=== PATIENT | female | born 1955 | race Caucasian/White ===

== ENCOUNTER → 2016-05-04 | Outpatient (CLI) | payer OTHER ==
--- NOTE | 2016-05-07 09:37 | MM ---
Reason for exam: screening (asymptomatic). Last mammogram was performed 1 year and 2 months ago. History: Patient is postmenopausal. Family history of breast cancer in 2 maternal aunts. Excisional biopsy of the left breast. Physical Findings: A clinical breast exam by your physician is recommended on an annual basis and results should be correlated with mammographic findings. MG 3D Screening Mammo W/Cad Bilateral CC and MLO view(s) were taken. Prior study comparison: March 04, 2015, bilateral MG 3d screening mammo w/cad. January 15, 2013, bilateral digital screening mammo w/CAD. There are scattered fibroglandular densities. No significant changes when compared with prior studies. ASSESSMENT: Negative, BI-RAD 1 RECOMMENDATION: Routine screening mammogram of both breasts in 1 year.
== END | disposition home or self-care (01) ==
LOC: RADMAMWWP 16:24
PROVIDERS: ATTEND Family Medicine
DX: Z12.31 Encounter for screening mammogram for malignant neoplasm of breast (principal)
CPT/HCPCS: 77063; G0202

== ENCOUNTER → 2017-07-05 | Outpatient (CLI) | payer OTHER ==
--- NOTE | 2017-07-09 09:15 | MM ---
Reason for exam: screening (asymptomatic). Last mammogram was performed 1 year and 2 months ago. History: Patient is postmenopausal. Family history of breast cancer in 2 maternal aunts. Excisional biopsy of the left breast. Physical Findings: A clinical breast exam by your physician is recommended on an annual basis and results should be correlated with mammographic findings. MG 3D Screening Mammo W/Cad Bilateral CC and MLO view(s) were taken. Prior study comparison: May 04, 2016, bilateral MG 3d screening mammo w/cad. March 04, 2015, bilateral MG 3d screening mammo w/cad. The breast tissue is heterogeneously dense. This may lower the sensitivity of mammography. No significant changes when compared with prior studies. ASSESSMENT: Negative, BI-RAD 1 RECOMMENDATION: Routine screening mammogram of both breasts in 1 year.
== END | disposition home or self-care (01) ==
LOC: RADMAMWWP 14:56
PROVIDERS: ATTEND Family Medicine
DX: Z12.31 Encounter for screening mammogram for malignant neoplasm of breast (principal)
CPT/HCPCS: 77063; 77067

== ENCOUNTER → 2018-04-24 | Outpatient (CLI) | payer OTHER ==
--- NOTE | 2018-04-24 19:44 | CONS ---
CONSULTATION DATE OF SERVICE: 04/24/2018 63-year-old lady has been evaluated in the sleep center for possible obstructive sleep apnea-hypopnea syndrome. HISTORY OF PRESENT ILLNESS/ SLEEP WAKE EVALUATION: Patient usual sleep schedule on weekdays from midnight until 10 a.m. 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 No problem with falling asleep. No TV in bedroom. She usually sleeps on the side position with snoring and awakenings from sleep up to 4 times. The patient also grinding her teeth. In the morning, she wakes up tired, falling asleep during the day. Has episodes of depression. [place] Sleepiness Scale is 8. PAST MEDICAL HISTORY: Positive for depression, hyperlipidemia. Acid reflux. PAST SURGICAL HISTORY: Breast biopsy negative. MEDICATIONS: Effexor, Prevacid, Zocor, vitamin D supplements. SOCIAL HISTORY: Positive for smoking in the past, quit 35 years ago. Alcohol consumption none. FAMILY HISTORY: Hypertension, hyperlipidemia, stroke, arthritis, asthma, dementia, lung problems, cancer, mental illness, ulcers, acid reflux. REVIEW OF SYSTEMS: Awakenings from sleep, sometimes tiredness during the day. Patient takes nap when she has time to do so. PHYSICAL EXAM: Patient in no distress. BP 137/92, HR 86, RR 16, height 5 feet 5 inches, weight 209 pounds. Body mass index 34.9, temperature 98.3, oxygen saturation at room air 98%. Oropharynx extremely low position of soft palate. Retrognathia 4-5 mm. Abdomen slightly obese. Neck Supple, no JVD. Thyroid is not palpable. LUNGS Clear to percussion and to auscultation. Good air exchange. No wheezing or rhonchi. HEART S1, S2 regular. No murmurs, gallops, or rubs. ABDOMEN: Obese. Soft and nontender. Bowel sounds are present. No organomegaly appreciated. EXTREMITIES No clubbing or cyanosis. RADIOLOGIC TECH Awake, alert, and oriented X3. Cranial nerves 2 to 7 intact. There is no fasciculation or atrophy. noted. No focal deficits observed. IMPRESSION: 1. Snoring, multiple awakenings from sleep, extremely low position of soft palate, obstructive sleep apnea-hypopnea syndrome. 2. Obesity, BMI 34.9. 3. History of depression. 4. Hyperlipidemia. 5. Acid reflux. PLAN: 1. Polysomnography for evaluation of patient's breathing during sleep. 2. CPAP/BiPAP titration if sleep study confirms obstructive sleep apnea-hypopnea syndrome. 3. Preferable position during sleep on the side. 4. No driving if patient feels any sleepiness. 5. I will see patient for follow up visit to explain results of testing and following plan. Thank you very much for referring this patient for consultation. Sincerely, Emmanuel Dinero MD, PhD, FAASM Diplomat of [place] [employer] Specialties [employer] Board of [employer] Medicine Streetsweeper Operator of [facility] [place] MMODL / IJN: [id number] /
== END ==
LOC: SLEEP 14:32
PROVIDERS: ATTEND Internal Medicine
DX: G47.33 Obstructive sleep apnea (adult) (pediatric) (principal); E66.9 Obesity, unspecified; F32.9 Major depressive disorder, single episode, unspecified; E78.5 Hyperlipidemia, unspecified; K21.9 Gastro-esophageal reflux disease without esophagitis; Z99.89 Dependence on other enabling machines and devices; Z87.891 Personal history of nicotine dependence; Z68.34 Body mass index [BMI] 34.0-34.9, adult
CPT/HCPCS: 99211

== ENCOUNTER → 2018-08-13 | Outpatient (CLI) | payer OTHER ==
--- NOTE | 2018-08-13 17:25 | PN ---
PROGRESS NOTE DATE OF SERVICE: 08/13/2018 This patient is a 63-year-old lady who has been followed in Sleep Center for treatment for treatment of obstructive sleep apnea-hypopnea syndrome. Recently the patient had a home sleep apnea test which showed severe sleep apnea. Subsequently patient was started on treatment with Auto PAP. Today is her first visit after she was treated. The patient sleeps better with the CPAP equipment, feels better during the day. [place] Sleepiness Scale today is 3, but she still has some problem with her mask; sometimes she feels there is a leak from the mask and she feels some related to the mask. I checked her CPAP unit. Range of the pressure is from 5 to 15. Average pressure is 12.9. Usage is every night for 28/30 nights for more than 4 hours. Average usage is 8.5 hours. Leak is 19 L/minute, which is borderline for the full-face mask. Apnea- hypopnea index for the last night was only 1.5, but average for the last month is 8.6. MEDICATIONS: 1. Effexor. 2. Prevacid. 3. Zocor. 4. Vitamin D. PHYSICAL EXAMINATION: GENERAL: A pleasant patient in no distress. VITAL SIGNS: BP 147/80, HR 94, RR 16, weight 212 pounds. Temperature 99.1. Oxygen saturation at room air 98%. HEENT: PERRLA, EOMI. Evaluation of oropharynx showed tongue protrudes midline. Extremely low position of soft palate. Retrognathia of 4 mm. NECK: Supple. No JVD. Thyroid is not palpable. LUNGS: Clear to percussion and to auscultation. Good air exchange. No wheezing or rhonchi. HEART: S1, S2 regular. No murmurs, gallops or rubs. ABDOMEN: Slightly obese. EXTREMITIES: No clubbing or cyanosis. TRIMMING CASER: Awake, alert, and oriented X3. Cranial nerves 2 to 7 intact. There is no fasciculation or atrophy. noted. No focal deficits observed. IMPRESSION: 1. Severe obstructive sleep apnea-hypopnea syndrome. Apnea-hypopnea index 31.8 with oxygen saturation to 85%, practically under control with Auto PAP. Patient demonstrated great compliance with treatment, benefitting from treatment. 2. Obesity. 3. History of depression. 4. Hyperlipidemia. 5. Acid reflux. PLAN: 1. Patient will continue to use CPAP equipment every night for the whole night. 2. We will try to fit the patient with a different style of CPAP mask. 3. Losing weight. 4. Sleep hygiene with regular time in bed for at least 8 hours. 5. No driving if feeling any sleepiness. Thank you very much for allowing me to participate in the management of your patient. Sincerely, Emmanuel Dinero MD, PhD, FAASM Diplomat of [place] Of [place] Board of Medical Specialties Citizen Of [place] Board of Internal Medicine Free Lance Model of [facility] [place] MMODL / IJN: [id number] /
== END ==
LOC: SLEEP 15:49
PROVIDERS: ATTEND Internal Medicine
DX: G47.33 Obstructive sleep apnea (adult) (pediatric) (principal); E66.9 Obesity, unspecified; E78.5 Hyperlipidemia, unspecified; K21.9 Gastro-esophageal reflux disease without esophagitis; F32.9 Major depressive disorder, single episode, unspecified; Z99.89 Dependence on other enabling machines and devices; Z79.899 Other long term (current) drug therapy

== ENCOUNTER → 2018-12-30 | Outpatient (CLI) | payer OTHER ==
--- NOTE | 2019-01-01 15:03 | MM ---
Reason for exam: screening (asymptomatic). Last mammogram was performed 1 year and 6 months ago. History: Patient is postmenopausal. Family history of breast cancer in 2 maternal aunts. Excisional biopsy of the left breast. Physical Findings: A clinical breast exam by your physician is recommended on an annual basis and results should be correlated with mammographic findings. MG 3D Screening Mammo W/Cad Bilateral CC and MLO view(s) were taken. Prior study comparison: July 05, 2017, bilateral MG 3d screening mammo w/cad. May 04, 2016, bilateral MG 3d screening mammo w/cad. There are scattered fibroglandular densities. No significant changes when compared with prior studies. ASSESSMENT: Negative, BI-RAD 1 RECOMMENDATION: Routine screening mammogram of both breasts in 1 year.
== END ==
LOC: RADMAMWWP 13:45
PROVIDERS: ATTEND Family Medicine
DX: Z12.31 Encounter for screening mammogram for malignant neoplasm of breast (principal)
CPT/HCPCS: 77063; 77067

== ENCOUNTER → 2019-04-30 | Outpatient (CLI) | payer OTHER ==
--- NOTE | 2019-04-30 18:05 | PN ---
PROGRESS NOTE DATE OF SERVICE: 04/30/2019 This patient is a 64-year-old lady who has been followed in Sleep Center for treatment of obstructive sleep apnea-hypopnea syndrome. Patient continues to use her CPAP equipment every night for the whole night with the full-face AirTouch F20 medium-sized mask, and she likes this mask. [place] Sleepiness Scale today is 1. I checked the patient's CPAP unit. Range of the pressure is 5 to 15. Average pressure is 13.7 cm of water. Leak is 14 L/minute, which is acceptable for a full-face mask. Usage is 30/30 nights for more than 4 hours with average usage 10.5 hours per night. Apnea-hypopnea index is 5.9, which is better than 6 months ago, and for the last night apnea-hypopnea index was only 2.5, which is perfect. MEDICATIONS: Medrol Dosepak, Effexor, Prevacid, Zocor, vitamin D. PHYSICAL EXAMINATION: GENERAL: A pleasant patient in no distress. VITAL SIGNS: BP 168/99, HR 86, RR 15, height 5 feet 5 inches, weight 214.2 pounds, body mass index 35.6, temperature 98.2, oxygen saturation at room air 97%. HEENT: PERRLA, EOMI. Evaluation of oropharynx showed tongue protrudes midline. Extremely low position of soft palate. Mallampati IV. NECK: Supple. No JVD. Thyroid is not palpable. LUNGS: Clear to percussion and to auscultation. Good air exchange. No wheezing or rhonchi. HEART: S1, S2 regular. No murmurs, gallops or rubs. ABDOMEN: Slightly obese. EXTREMITIES: No clubbing or cyanosis. FAST FOOD SALES ASSISTANT: Awake, alert, and oriented X3. Cranial nerves 2 to 7 intact. There is no fasciculation or atrophy. noted. No focal deficits observed. IMPRESSION: 1. Severe obstructive sleep apnea-hypopnea syndrome; AHI 31.8 with oxygen desaturation to 85%, under good control with CPAP. Patient demonstrated great compliance with treatment, benefitting from treatment. 2. Obesity. 3. Hyperlipidemia. 4. History of depression. 5. Acid reflux. 6. Increasing blood pressure in the office today. PLAN: 1. Patient will continue to use CPAP equipment every night for the whole night. 2. Watching weight. 3. Monitoring blood pressure. 4. Low-sodium diet. 5. No driving if feeling any sleepiness. 6. I will maintain all necessary CPAP prescriptions, including mask, tube, filters. Thank you very much for allowing me to participate in the management of your patient. Sincerely, Emmanuel Dinero MD, PhD, FAASM Diplomat of [place] Board of Medical Specialties [place]ian Board of Internal Medicine Quality Control Microbiology Supervisor of [facility] [place] MMODL / CARTERN: [id number] /
== END | disposition home or self-care (01) ==
LOC: SLEEP 15:15
PROVIDERS: ATTEND Internal Medicine
DX: G47.33 Obstructive sleep apnea (adult) (pediatric) (principal); E66.9 Obesity, unspecified; E78.5 Hyperlipidemia, unspecified; K21.9 Gastro-esophageal reflux disease without esophagitis; I10 Essential (primary) hypertension; Z68.35 Body mass index [BMI] 35.0-35.9, adult; Z86.59 Personal history of other mental and behavioral disorders; Z99.89 Dependence on other enabling machines and devices; Z79.52 Long term (current) use of systemic steroids; Z79.899 Other long term (current) drug therapy

== ENCOUNTER → 2019-11-12 | Outpatient (CLI) | payer OTHER ==
--- NOTE | 2019-11-13 06:18 | SFUN ---
SLEEP CENTER FOLLOW UP NOTE DATE OF SERVICE: 11/12/2019 This 64-year-old lady has been followed in Sleep Center for treatment of obstructive sleep apnea-hypopnea syndrome. Patient continued to use her CPAP equipment every night. She sleeps well with equipment. No problems. [place] Sleepiness Scale today is zero. I checked her CPAP unit. Range of the pressure is 5 to 15. Average pressure 13.4 cm of water usage. Usage 30 out of 30 nights for more than 4 hours. Average usage 10.3 hours per night. Leak is 14 L/minute which is borderline. Apnea-hypopnea index 6.6, and amount of central apneas 4.9. MEDICATIONS: Carvedilol, Effexor, Zyrtec. Medication for cholesterol, patient does not remember the name. PHYSICAL EXAMINATION: GENERAL: Patient in no distress. VITAL SIGNS: BP 158/77, HR 77, RR 15, height 5 feet 5-1/2 inches, weight 219.8, which is 5-1/2 pounds more than during the previous visit, temperature 98.2, oxygen saturation at room air 100%. HEENT: PERRLA, EOMI. Oropharynx low position of soft palate. Mallampati 4. NECK: Supple, no JVD. Thyroid is not palpable. LUNGS: Clear to percussion and to auscultation. Good air exchange. No wheezing or rhonchi. HEART: S1, S2 regular. No murmurs, gallops, or rubs. ABDOMEN: Slightly obese. EXTREMITIES: No clubbing or cyanosis. CHRISTIAN SCIENCE HEALER: Awake, alert, and oriented X3. Cranial nerves 2 to 7 intact. There is no fasciculation or atrophy. noted. No focal deficits observed. IMPRESSION: 1. Severe obstructive sleep apnea-hypopnea syndrome. Patient demonstrated 100% compliance with treatment, benefitting from treatment. 2. Obesity. Patient increased weight of 5 pounds comparing with the previous visit. 3. History of depression. 4. Hyperlipidemia. 5. Acid reflux. 6. Hypertension. PLAN: 1. Patient will continue to use PAP equipment every night for the whole night. 2. Sleep hygiene with regular time in bed for at least 7-1/2 to 8 hours. 3. Precautions related to driving. No driving if feeling sleepiness. 4. I will maintain all necessary prescription for PAP supplies including mask, tube, filters. 5. Watching weight. 6. No driving if feeling sleepiness. 7. Follow-up visit in 6 months or earlier if patient has any problems. Thank you very much for allowing me to participate in management of your patient. Sincerely, Emmanuel Dinero MD, PhD, FAASM Diplomat of [place] Board of Medical Specialties Nep[place]e Board of Internal Medicine Supervisor Coil Winding of [facility] [place] MMNICK / BRIDGET: [id number] /
== END | disposition home or self-care (01) ==
LOC: SLEEP 15:33
PROVIDERS: ATTEND Internal Medicine
DX: G47.33 Obstructive sleep apnea (adult) (pediatric) (principal); E66.9 Obesity, unspecified; E78.5 Hyperlipidemia, unspecified; Z68.41 Body mass index [BMI] 40.0-44.9, adult; K21.9 Gastro-esophageal reflux disease without esophagitis; I10 Essential (primary) hypertension; Z86.59 Personal history of other mental and behavioral disorders; Z99.89 Dependence on other enabling machines and devices; Z79.899 Other long term (current) drug therapy

== ENCOUNTER → 2020-05-12 | Outpatient (CLI) | payer OTHER ==
--- NOTE | 2020-05-12 18:03 | SFUN ---
SLEEP CENTER FOLLOW UP NOTE DATE OF SERVICE: 05/12/2020 This is a 65-year-old lady who has been followed in Sleep Center for treatment of obstructive sleep apnea-hypopnea syndrome. The patient is continuing to use her CPAP equipment every night for the whole night, but trying to sleep on the side position on the back position she is developing some breathing problems, and numbers on her machine, according to the patient, go up. I checked the patient's CPAP unit. Range of the pressure is 5 to15, average pressure 12.5. Usage is 30/30 nights for more than 4 hours. Average use is 9.9 hours per night. Leak is 26 L/minute, which is slightly high. Apnea-hypopnea index is 4.7, which is normal. MEDICATIONS: Coreg twice a day, Effexor once a day, simvastatin once a day, Claritin, aspirin. PHYSICAL EXAMINATION: GENERAL: A pleasant patient in no distress. VITAL SIGNS: BP 144/90, HR 79, RR 12, height 5 feet 1 inch, weight 226.0, temperature 97.6, oxygen saturation at room air 97%. HEENT: PERRLA, EOMI. Evaluation of oropharynx showed tongue protrudes midline. Extremely low position of soft palate. Mallampati IV. NECK: Supple. No JVD. Thyroid is not palpable. LUNGS: Clear to percussion and to auscultation. Good air exchange. No wheezing or rhonchi. HEART: S1, S2 regular. No murmurs, gallops or rubs. ABDOMEN: Obese. EXTREMITIES: No clubbing or cyanosis. SALVAGE LABORER: Awake, alert, and oriented X3. Cranial nerves 2 to 7 intact. There is no fasciculation or atrophy. noted. No focal deficits observed. IMPRESSION: 1. Obstructive sleep apnea-hypopnea syndrome. Patient demonstrated 100% compliance with treatment, benefitting from treatment. The patient has some difficulties sleeping on the back position related her breathing. 2. Obesity. Patient's weight increased by about 6 or 7 pounds since previous visit. 3. History of depression. 4. Hyperlipidemia. 5. Acid reflux. 6. Hypertension. PLAN: 1. I adjusted the pressure in her machine to the maximum level of 18; possibly it is not enough pressure for correction of respiratory abnormalities when the patient is on her back. She is trying to avoid sleeping on her back now. 2. Patient will continue to use PAP equipment every night for the whole night. 3. Sleep hygiene with regular time in bed for at least 7-1/2 to 8 hours. 4. Precautions related to driving. No driving if feeling sleepiness. 5. I will maintain all necessary prescription for PAP supplies including mask, tube, filters. 6. Watching weight. 7. No driving if feeling sleepiness. 8. Follow-up visit in 6 months or earlier if patient has any problems. Thank you very much for allowing me to participate in the management of your patient. Sincerely, Emmanuel Dinero MD, PhD, FAASM Diplomat of [place] Board of Medical Specialties Ghanaian Board of Internal Medicine Band Ripsaw Operator of [facility] [place] MMODL / IJN: [id number] /
== END | disposition home or self-care (01) ==
LOC: SLEEP 13:46
PROVIDERS: ATTEND Internal Medicine
DX: G47.33 Obstructive sleep apnea (adult) (pediatric) (principal); E78.5 Hyperlipidemia, unspecified; K21.9 Gastro-esophageal reflux disease without esophagitis; I10 Essential (primary) hypertension; E66.9 Obesity, unspecified; Z86.59 Personal history of other mental and behavioral disorders; Z79.82 Long term (current) use of aspirin; Z79.899 Other long term (current) drug therapy; Z99.89 Dependence on other enabling machines and devices

== ENCOUNTER → 2020-06-02 | Outpatient (CLI) | payer OTHER ==
--- NOTE | 2020-06-03 14:18 | MM ---
Reason for exam: screening (asymptomatic). Last mammogram was performed 1 year and 5 months ago. History: Patient is postmenopausal. Family history of breast cancer in 2 maternal aunts. Excisional biopsy of the left breast. Physical Findings: A clinical breast exam by your physician is recommended on an annual basis and results should be correlated with mammographic findings. MG 3D Screening Mammo W/Cad Bilateral CC, MLO, and XCCL view(s) were taken. Prior study comparison: December 30, 2018, bilateral MG 3d screening mammo w/cad. July 05, 2017, bilateral MG 3d screening mammo w/cad. The breast tissue is heterogeneously dense. This may lower the sensitivity of mammography. There is no discrete abnormality. ASSESSMENT: Negative, BI-RAD 1 RECOMMENDATION: Routine screening mammogram of both breasts in 1 year.
== END ==
LOC: RADMAMWWP 14:35
PROVIDERS: ATTEND Family Medicine
DX: Z12.31 Encounter for screening mammogram for malignant neoplasm of breast (principal); Z80.3 Family history of malignant neoplasm of breast; Z78.0 Asymptomatic menopausal state
CPT/HCPCS: 77063; 77067

== ENCOUNTER → 2020-12-01 | Outpatient (CLI) | payer OTHER ==
--- NOTE | 2020-12-01 20:37 | SFUN ---
SLEEP CENTER FOLLOW UP NOTE DATE OF SERVICE: 12/01/2020 This 65-year-old lady has been followed in Sleep Center for treatment of obstructive sleep apnea-hypopnea syndrome. The patient continues to use her CPAP equipment every night, but sometimes she has episodes of awakenings with gasping for air while using her machine. [place] Sleepiness Scale today is only 1, which is perfect. I checked her CPAP unit. It is in automatic regimen with range of the pressure 5-18 and average pressure 13.5. Usage is 30/30 nights, and 28/30 nights for more than 4 hours, with average usage 8.5 hours per night, which is great compliance. Leak is borderline at 20 L/minute. At the same time, apnea-hypopnea index increased to 8.4. MEDICATIONS: 1. Wellbutrin once a day. 2. Effexor has stopped. 3. Coreg. 4. Glipizide. 5. Prevacid. 6. Simvastatin. PHYSICAL EXAMINATION: GENERAL: A pleasant patient without any distress. VITAL SIGNS: BP 137/82, HR 69, RR 12, height 5 feet 6 inches, weight 222.2, BMI 35.8, temperature 97.2, oxygen saturation at room air 98%. HEENT: PERRLA, EOMI, evaluation of oropharynx showed tongue protrudes midline. Extremely low position of soft palate; Mallampati IV. NECK: Supple, no JVD. Thyroid is not palpable. LUNGS: Clear to percussion and to auscultation. Good air exchange. No wheezing or rhonchi. HEART: S1, S2 regular. No murmurs, gallops, or rubs. ABDOMEN: Obese. EXTREMITIES: No clubbing or cyanosis. BUTTON PUNCHER: Awake, alert, and oriented X3. Cranial nerves 2 to 7 intact. There is no fasciculation or atrophy. noted. No focal deficits observed. IMPRESSION: 1. Obstructive sleep apnea-hypopnea syndrome. Patient demonstrated great compliance with treatment, but her apnea-hypopnea index slightly increased to 8.4. 2. Obesity. 3. History of depression. 4. Hyperlipidemia. 5. Acid reflux. 6. Hypertension. PLAN: 1. I changed the regimen of automatic PAP pressure from 5 to maximum of 20. 2. Patient will continue to use PAP equipment every night for the whole night. 3. Sleep hygiene with regular time in bed for at least 7-1/2 to 8 hours. 4. Precautions related to driving. No driving if feeling sleepiness. 5. I will maintain all necessary prescription for PAP supplies including mask, tube, filters. 6. Watching weight. 7. Follow-up visit in 3 months or earlier if patient has any problems. Thank you very much for allowing me to participate in the management of your patient. Sincerely, Emmanuel Dinero MD, PhD, FAASM Diplomat of [place] Board of Medical Specialties Sleep Medicine Board of [place] Board of Internal Medicine Project Associate of [facility] [place] MMODL / CARTERN: [id number] /
== END ==
LOC: SLEEP 13:47
PROVIDERS: ATTEND Internal Medicine
DX: G47.33 Obstructive sleep apnea (adult) (pediatric) (principal); E66.9 Obesity, unspecified; F32.9 Major depressive disorder, single episode, unspecified; E78.5 Hyperlipidemia, unspecified; K21.9 Gastro-esophageal reflux disease without esophagitis; I10 Essential (primary) hypertension; Z79.899 Other long term (current) drug therapy; Z68.35 Body mass index [BMI] 35.0-35.9, adult; Z88.0 Allergy status to penicillin; Z88.2 Allergy status to sulfonamides; Z87.891 Personal history of nicotine dependence

== ENCOUNTER → 2021-05-25 | Outpatient (CLI) | payer OTHER ==
--- NOTE | 2021-05-25 14:47 | SFUN ---
SLEEP CENTER FOLLOW UP NOTE DATE OF SERVICE: 05/25/2021 This 66-year-old lady has been followed in Sleep Center for treatment of obstructive sleep apnea-hypopnea syndrome. The patient lost 30 pounds of her weight, and she thinks that possibly she does not need the machine anymore. She is not to using CPAP equipment every night. [place] Sleepiness Scale today is 1, which is normal. I checked her CPAP unit. For the last month, the patient used it only one night, and for that night leak was 8 L/minute and apnea-hypopnea index was 3.0, which is in normal range. For the last 3 months, the patient used it 33 nights and leak was high at L/minute, and apnea-hypopnea index was increased to 5.5. Range of the pressure in the machine is 5 to 20, average pressure 14.8 cm of water, which is in a high range. MEDICATIONS: 1. Wellbutrin 150 mg once a day. 2. Zoloft twice a day. 3. Prevacid. 4. Coreg. 5. Glipizide. 6. Simvastatin. PHYSICAL EXAMINATION: GENERAL: Pleasant patient in no distress. VITAL SIGNS: BP 153/89, HR 64, RR 18, weight 198 pounds, height 5 feet 6 inches, temperature 97.6, oxygen saturation at room air 97%. HEENT: PERRLA, EOMI, evaluation of oropharynx showed tongue protrudes midline. Extremely low position of soft palate; Mallampati IV. NECK: Supple, no JVD. Thyroid is not palpable. LUNGS: Clear to percussion and to auscultation. Good air exchange. No wheezing or rhonchi. HEART: S1, S2 regular. No murmurs, gallops, or rubs. ABDOMEN: Soft and nontender. Bowel sounds are present. No organomegaly appreciated. EXTREMITIES: No clubbing or cyanosis. INFANT ROOM TEACHER: Awake, alert, and oriented X3. Cranial nerves 2 to 7 intact. There is no fasciculation or atrophy. noted. No focal deficits observed. IMPRESSION: 1. Obstructive sleep apnea-hypopnea syndrome. The patient practically stopped using her CPAP equipment after losing weight and believes that her respiration is possibly normal after losing weight. 2. Obesity. Patient lost about 30 pounds in total. 3. History of depression. 4. Hyperlipidemia. 5. Acid reflux. 6. Hypertension. PLAN: 1. Home sleep apnea test to check patient's breathing during sleep after she lost weight. 2. I tried to convince the patient that she needs to continue to use her CPAP equipment every night for the whole night. I believe that she still has abnormalities of respiration, especially because apnea-hypopnea index reading from the machine while she was using machine was 5.5, which is above normal range. 3. Continue losing weight. 4. Sleep hygiene with regular time in bed for at least 7-1/2 to 8 hours. 5. No driving if feeling any sleepiness. 6. Follow-up visit after home sleep apnea test to discuss results of the sleep study and following plan. Thank you very much for allowing me to participate in the management of your patient. Sincerely, Emmanuel Dinero MD, PhD, FAASM Diplomat of [place] Board of Medical Specialties Sleep Medicine Board of [place] Board of Internal Medicine Wall Taper of [facility] [place] MMODL / IJN: [id number] /
== END ==
LOC: SLEEP 11:11
PROVIDERS: ATTEND Internal Medicine
DX: G47.33 Obstructive sleep apnea (adult) (pediatric) (principal); E66.9 Obesity, unspecified; F32.A Depression, unspecified; E78.5 Hyperlipidemia, unspecified; K21.9 Gastro-esophageal reflux disease without esophagitis; I10 Essential (primary) hypertension; Z79.899 Other long term (current) drug therapy; Z88.0 Allergy status to penicillin; Z88.2 Allergy status to sulfonamides; Z87.891 Personal history of nicotine dependence

== ENCOUNTER → 2021-06-15 | Outpatient (CLI) | payer OTHER ==
--- NOTE | 2021-06-15 14:10 | CT ---
EXAMINATION TYPE: CT sinus wo con DATE OF EXAM: 06/15/2021 COMPARISON: None available HISTORY: Chronic sinusitis. CT DLP: 589 mGycm. Automated Exposure Control for Dose Reduction was Utilized. TECHNIQUE: CT scan of the sinuses is performed without contrast, axial images are obtained, coronal r eformatted images are also reviewed. FINDINGS: Slightly deviated bony nasal septum convex to the left side. Slightly paradoxical middle turbinates. Grossly unremarkable inferior turbinates. No significant mucosal thickening of the nasal fossa bilate rally. Patent infundibulum and ostiomeatal complex bilaterally. Minimal mucosal thickening of the alveolar r ecess of the right maxillary sinus, otherwise clear maxillary sinuses with intact bony boundary. Unremarkable sphenoid sinus, ethmoid air cells and frontal sinus. Patent sphenoethmoidal recesses. Cl ear mastoid air cells. Unremarkable orbits. The visualized portion of the brain demonstrates mild brain volume loss changes, likely age-related, and suspected mild chronic microvascular ischemic changes. IMPRESSION: Minimal mucosal thickening of the right maxillary sinus, otherwise unremarkable paranasal sinuses. Ot her findings as described above.
== END | disposition home or self-care (01) ==
LOC: RADCTMAIN 13:41
PROVIDERS: ATTEND Otolaryngology
DX: J34.89 Other specified disorders of nose and nasal sinuses (principal)
CPT/HCPCS: 70486

== ENCOUNTER → 2021-09-01 | Outpatient (CLI) | payer OTHER ==
--- NOTE | 2021-09-04 09:08 | MM ---
Reason for Exam: Screening (asymptomatic). Last mammogram was performed 1 year(s) and 3 month(s) ago. Patient History: Menarche at age 15. First Full-Term at age 18. Postmenopausal. Excisional Biopsy on the Left side. Maternal aunt had breast cancer. Maternal aunt had breast cancer. Risk Values: Estee 5 year model risk: 1.3%. NCI Lifetime model risk: 4.9%. Prior Study Comparison: 07/05/2017 Bilateral Screening Mammogram, [facility]. 12/30/2018 Bilateral Screening Mammogram, [facility]. 06/02/2020 Bilateral Screening Mammogram, [facility]. Tissue Density: The breast tissue is heterogeneously dense. This may lower the sensitivity of mammography. Findings: Analyzed By CAD. There is no suspicious group of microcalcifications or new suspicious mass in either breast. Overall Assessment: Negative, BI-RAD 1 Management: Screening Mammogram of both breasts in 1 year. A clinical breast exam by your physician is recommended on an annual basis and results should be correlated with mammographic findings. Electronically signed and approved by: Eddy Mcmahon M.D. Radiologis
== END | disposition home or self-care (01) ==
LOC: RADMAMWWP 14:55
PROVIDERS: ATTEND Family Medicine
DX: Z12.31 Encounter for screening mammogram for malignant neoplasm of breast (principal); Z78.0 Asymptomatic menopausal state; Z80.3 Family history of malignant neoplasm of breast
CPT/HCPCS: 77063; 77067

== ENCOUNTER 2022-02-08 16:28 | Observation (INO) | payer MEDICARE, OTHER ==
--- NOTE | 2022-02-08 18:58 | ED ---
Lower Extremity Injury HPI - General Chief Complaint: Extremity Injury, Lower Stated Complaint: Fall, L. Leg Injury Time Seen by Provider: 02/08/22 18:47 Source: patient, family Mode of arrival: wheelchair - History of Present Illness Initial Comments: Patient is a 67-year-old female presenting with chief complaint of left knee pain. Patient states that she had some swelling along the bottom of her shoe, this caused her to fall and slip in her kitchen. She denies any head injury, no blood thinners. No loss of consciousness. Patient is complaining of pain with weightbearing and ambulation. Patient states that rest the pain is very minimal. She has full range of motion and full sensation. No weakness, numbness, tingling. No bruising or discoloration. - Related Data Home Medications Medication Instructions Recorded Confirmed Albuterol Inhaler [Ventolin Hfa 2 puff INHALATION RT-Q6H PRN 07/09/14 02/08/22 Inhaler] Ergocalciferol [Vitamin D2 50,000 unit PO WE 07/09/14 02/08/22 (DRISDOL)] Sertraline HCl [Zoloft] 50 mg PO DAILY 07/09/14 02/08/22 Simvastatin (Unknown Dose) 1 tab PO DAILY 07/09/14 02/08/22 Clindamycin Topical Soln 1 applic TOPICAL DAILY PRN 02/08/22 02/08/22 [Cleocin-T Topical Soln] Clobetasol Propionate [Temovate 1 applic TOPICAL BID 02/08/22 02/08/22 0.05% Oint] Fluconazole 200 mg PO Q72H PRN 02/08/22 02/08/22 Lansoprazole 15 mg PO HS 02/08/22 02/08/22 Levocetirizine Dihydrochloride 5 mg PO DAILY 02/08/22 02/08/22 Minocycline HCl [Minocin] 100 mg PO BID 02/08/22 02/08/22 Mometasone Furoate [Asmanex 220 1 puff INHALATION RT-BID 02/08/22 02/08/22 MCG] Mupirocin 2% Oint [Bactroban 2% 1 applic TOPICAL BID 02/08/22 02/08/22 Oint] Super Snooze Herbal Supplement 1 dose PO HS PRN 02/08/22 02/08/22 Triamcinolone 0.1% Cream [Kenalog 1 applicatio TOPICAL BID 02/08/22 02/08/22 0.1% Cream] Allergies Allergy/AdvReac Type Severity Reaction Status Date / Time Penicillins Allergy Unknown Verified 02/08/22 22:33 Childhood Sulfa (Sulfonamide Allergy Rash/Hives Verified 02/08/22 22:33 Antibiotics) Review of Systems ROS Statement: Those systems with pertinent positive or pertinent negative responses have been documented in the HPI. ROS Other: All systems not noted in ROS Statement are negative. Past Medical History Past Medical History: Asthma, GERD/Reflux, Hyperlipidemia, Hypertension Additional Past Medical History / Comment(s): ABDOMINAL PAIN History of Any Multi-Drug Resistant Organisms: MRSA Date of last positivie culture/infection: 2012 MDRO Source:: FACE Additional Past Surgical History / Comment(s): EGD, COLONOSCOPY, BREAST BX BENIGN Past Anesthesia/Blood Transfusion Reactions: No Reported Reaction Past Psychological History: Anxiety, Depression Smoking Status: Never smoker Past Alcohol Use History: None Reported Past Drug Use History: None Reported General Exam General appearance: alert, in no apparent distress Head exam: Present: atraumatic, normocephalic, normal inspection Eye exam: Present: normal appearance Neck exam: Present: normal inspection Extremities exam: Present: normal inspection, full ROM, normal capillary refill. Absent: tenderness, calf tenderness Neurological exam: Present: alert, oriented X3, CN II-XII intact Psychiatric exam: Present: normal affect, normal mood Skin exam: Present: warm, dry, intact, normal color. Absent: rash Course Vital Signs 02/08/22 18:40 Temperature 97.7 F Pulse Rate 83 Respiratory 18 Rate Blood Pressure 149/91 O2 Sat by Pulse 99 Oximetry Medical Decision Making - Medical Decision Making Patient is a 67-year-old female presenting with chief complaint of left knee pain. Patient slipped and fell in her kitchen today. No head injury, loss of consciousness or blood thinners. Patient is complaining with pain with weightbearing. X-ray shows acute slightly displaced comminuted intra-articular fracture through the lateral tibial plateau extending into the proximal metaphysis there is associative are 2 patellar joint effusion or hemarthrosis. I discussed these findings with orthopedic human resources receptionist Dr. Jones, she advised ordering CT. I informed her of the results of the CT, she states that the patient may be discharged home nonweightbearing and follow-up in the office or be admitted for orthopedic evaluation. Patient states that her home has a lot of stairs and she is worried about being able to navigate these nonweightbearing. She'll be admitted, Dr. Jones requests that orthopedics be on consult. I spoke with Sonia Noyola from [facility] accepted admission. Patient is agreeable with this plan. I discussed this case with my attending Dr. Betancourt. Disposition Clinical Impression: Tibial plateau fracture Disposition: ADMITTED IP TO THIS [facility] Condition: Good Time of Disposition: 21:38 Decision to Admit Reason: Admit from Decision Date: 02/08/22 Decision Time: 21:38
--- NOTE | 2022-02-08 19:14 | XR ---
EXAMINATION TYPE: XR knee complete LT DATE OF EXAM: 02/08/2022 CLINICAL HISTORY: Falling injury with pain TECHNIQUE: Three views of the left knee are obtained. COMPARISON: None. FINDINGS: There is acute slightly displaced comminuted intra-articular fracture through the lateral tibial plateau extending into the proximal metaphysis. There is associated large suprapatellar joint effusion or hemarthrosis. Incidental moderate narrowing and spurring medial tibial femoral compartment and moderate narrowing p atellofemoral compartment. IMPRESSION: As above.
[2022-02-08] MEDS ORDERED: MORPHINE SULFATE 4 MG/ML SYRINGE IM STA (19:48)
--- NOTE | 2022-02-08 20:32 | CT ---
EXAMINATION TYPE: CT knee LT wo con DATE OF EXAM: 02/08/2022 COMPARISON: Same day left knee x-ray. HISTORY: left tibial plateau fracture. Fracture and pain after recent injury CT DLP: 136.8 mGycm Automated exposure control for dose reduction was used. FINDINGS: Corresponding to x-ray there is comminuted slightly displaced intra-articular fracture through the le ft tibial plateau with maybe minimal step-off or depression. The adjacent fibula is intact. Distal fe mur is intact. No suspicious intra-articular loose bodies. Mild to moderate spurring at this level is seen. Medial tibiofemoral compartment shows moderate narrowing and spurring. Patellofemoral compartment lisa ws moderate to severe narrowing with slight lateral tilting or subluxation of the patella. Mild spurr ing is present. Large suprapatellar joint effusion or hemarthrosis is noted. Moderate size popliteal cyst with fat fluid level is noted. Muscle bulk is maintained. Minimal anteri or subcutaneous edema. IMPRESSION: As above.
[2022-02-08] MEDS ORDERED: NALOXONE 0.4 MG/ML 1 ML VIAL IV PRN (21:48)
[2022-02-08] MEDS ORDERED: ONDANSETRON ODT 4 MG TAB PO STA (21:49)
[2022-02-09] MEDS: MELATONIN 3 MG TABLET PO SCH ×2 (01:01→21:15)
[2022-02-09] MEDS: MORPHINE SULFATE 4 MG/ML SYRINGE IV PRN ×3 (01:01→10:24)
[2022-02-09] MEDS ORDERED: ALBUTEROL NEBULIZED 2.5 MG/3 ML INHALATION PRN (07:10)
[2022-02-09] MEDS: FLUTICASONE 110 MCG INHALER INHALATION SCH ×2 (07:24→19:11)
[2022-02-09] MEDS: LORATADINE 10 MG TAB PO SCH (10:25)
[2022-02-09] MEDS: SERTRALINE 50 MG TAB PO SCH (10:25)
--- NOTE | 2022-02-09 11:05 | P.CNOR ---
History of Present Illness - [facility] Consult date: 02/09/22 Consult reason: fracture (Left tibial plateau fracture) History of present illness: The patient is a 67 y/o female who presented to the emergency department at [facility] yesterday after sustaining a fall at home. She states she slipped on her kitchen floor and fell directly on the knee. She does not use a cane or walker at home. X-rays in the ER revealed a minimally displaced lateral tibial plateau fracture. The patient was unable to return home last night because of multiple steps at home and she lives alone. She was admitted for pain control and evaluation by physical therapy. Orthopedics was consulted for further evaluation and care. She has been attending outpatient physical therapy recently for the same knee due to pain and clicking in the knee. Today, the patient states her knee pain has improved. No new complaints. Review of Systems Constitutional: Denies chills, Denies fatigue, Denies fever Cardiovascular: Denies chest pain, Denies shortness of breath Respiratory: Denies cough Gastrointestinal: Denies diarrhea, Denies nausea, Denies vomiting Musculoskeletal: left: knee pain, knee stiffness, knee swelling Past Medical History Past Medical History: Asthma, GERD/Reflux, Hyperlipidemia, Hypertension Additional Past Medical History / Comment(s): ABDOMINAL PAIN History of Any Multi-Drug Resistant Organisms: MRSA Year Discovered:: 2012 MDRO Source:: FACE Additional Past Surgical History / Comment(s): EGD, COLONOSCOPY, BREAST BX BENIGN Past Anesthesia/Blood Transfusion Reactions: No Reported Reaction Past Psychological History: Anxiety, Depression Smoking Status: Never smoker Past Alcohol Use History: None Reported Past Drug Use History: None Reported Medications and Allergies Home Medications Medication Instructions Recorded Confirmed Type Albuterol Inhaler [Ventolin Hfa 2 puff INHALATION RT-Q6H PRN 07/09/14 02/08/22 History Inhaler] Ergocalciferol [Vitamin D2 50,000 unit PO WE 07/09/14 02/08/22 History (DRISDOL)] Sertraline HCl [Zoloft] 50 mg PO DAILY 07/09/14 02/08/22 History Clindamycin Topical Soln 1 applic TOPICAL DAILY PRN 02/08/22 02/08/22 History [Cleocin-T Topical Soln] Clobetasol Propionate [Temovate 1 applic TOPICAL BID 02/08/22 02/08/22 History 0.05% Oint] Fluconazole 200 mg PO Q72H PRN 02/08/22 02/08/22 History Lansoprazole 15 mg PO HS 02/08/22 02/08/22 History Levocetirizine Dihydrochloride 5 mg PO DAILY 02/08/22 02/08/22 History Minocycline HCl [Minocin] 100 mg PO BID 02/08/22 02/08/22 History Mometasone Furoate [Asmanex 220 1 puff INHALATION RT-BID 02/08/22 02/08/22 History MCG] Mupirocin 2% Oint [Bactroban 2% 1 applic TOPICAL BID 02/08/22 02/08/22 History Oint] Triamcinolone 0.1% Cream [Kenalog 1 applicatio TOPICAL BID 02/08/22 02/08/22 History 0.1% Cream] Simvastatin [Zocor] 40 mg PO DAILY 02/09/22 02/09/22 History Calcium Carbonate [Tums] 500 mg PO TID PRN tab 02/10/22 Rx Enoxaparin [Lovenox] 40 mg SQ DAILY each 02/10/22 Rx HYDROcodone/APAP 5-325MG [Birney 1 each PO Q4HR PRN #6 tab 02/10/22 Rx 5-325] Melatonin 3 mg PO HS tab 02/10/22 Rx traMADol HCl [Ultram] 50 mg PO QID PRN #8 tab 02/10/22 Rx Allergies Allergy/AdvReac Type Severity Reaction Status Date / Time Penicillins Allergy Unknown Verified 02/08/22 22:33 Childhood Sulfa (Sulfonamide Allergy Rash/Hives Verified 02/08/22 22:33 Antibiotics) Physical Examination Osteopathic Statement: *. No significant issues noted on an osteopathic structural exam other than those noted in the History and Physical/Consult. The patient is a 67 y/o female who is no acute distress. She is alert and oriented x3. Exam of the left knee reveals a mild to moderate effusion. No open wounds present. Pain to palpation to the lateral aspect of the knee. Limited ROM of the knee due to pain and guarding. Calf is soft and nontender. Good foot and ankle motion present. Good pedal pulse. Neurological status is intact. Results X-rays and CT of the left knee were reviewed and revealed a minimally displaced lateral tibial plateau fracture. Osteoarthritis noted in the knee. - Labs Result Diagrams: 02/10/22 05:56 02/10/22 05:56 Assessment and Plan (1) Fracture of lateral condyle of left tibia Current Visit: Yes Status: Acute Code(s): S82.122A - DISP FX OF LATERAL CONDYLE OF LEFT TIBIA, INIT FOR CLOS FX SNOMED Code(s): 415654836 (2) Fall Current Visit: Yes Status: Acute Code(s): W19.XXXA - UNSPECIFIED FALL, INIT IAL ENCOUNTER SNOMED Code(s): 3106592 Plan: The clinical, x-ray and CT findings were discussed with the patient. The case was discussed at length with Dr. Jones. No surgical intervention is planned. A script will be written for a hinged knee brace today. She will be nonweightbearing with a walker and the brace for 6 weeks. She may continue range of motion of the knee as tolerated with the brace on. The patient may discharge to skilled rehab per PT's recommendations when authorized by her insurance and a bed is available. PT seen and examined. Agree with above. Hinged knee brace ROMAT but NWB for 6 weeks. We'll see her in office in the next week or so.
[2022-02-09] MEDS ORDERED: NON FORMULARY DRUG (Clindamycin Topical Soln 1 APPLIC Ml) TOPICAL PRN (11:10)
[2022-02-09] MEDS: TRIAMCINOLONE 0.1% CREAM 80 GM TUBE TOPICAL SCH ×2 (13:06→20:59)
--- NOTE | 2022-02-09 13:31 | P.HPIM ---
History of Present Illness 67-year-old female came in with comments of right knee pain patient had a mechanical fall, found to have a left tibial plateau fracture. Patient was evaluated by orthopedic surgery and patient is nonweightbearing and follow with arthritic surgery as an outpatient but patient was evaluated by physical therapy and occupational therapy recommended subacute rehabilitation and patient needs prior authorization and probably will not be able to be discharged until Saturday. Patient pain is fairly well controlled REVIEW OF SYSTEMS: CONSTITUTIONAL: No fever, no malaise, no fatigue. HEENT: No recent visual problems or hearing problems. Denied any sore throat. CARDIOVASCULAR: No chest pain, orthopnea, PND, no palpitations, no syncope. PULMONARY: No shortness of breath, no cough, no hemoptysis. GASTROINTESTINAL: No diarrhea, no nausea, no vomiting, no abdominal pain. NEUROLOGICAL: No headaches, no weakness, no numbness. HEMATOLOGICAL: Denies any bleeding or petechiae. GENITOURINARY: Denies any burning micturition, frequency, or urgency. MUSCULOSKELETAL/RHEUMATOLOGICAL: Denies any joint pain, swelling, or any muscle pain. ENDOCRINE: Denies any polyuria or polydipsia. The rest of the 14-point review of systems is negative. PHYSICAL EXAMINATION: GENERAL: The patient is alert and oriented x3, not in any acute distress. Well developed, well nourished. HEENT: Pupils are round and equally reacting to light. EOMI. No scleral icterus. No conjunctival pallor. Normocephalic, atraumatic. No pharyngeal erythema. No thyromegaly. CARDIOVASCULAR: S1 and S2 present. No murmurs, rubs, or gallops. PULMONARY: Chest is clear to auscultation, no wheezing or crackles. ABDOMEN: Soft, nontender, nondistended, normoactive bowel sounds. No palpable organomegaly. MUSCULOSKELETAL: No joint swelling or deformity. EXTREMITIES: No cyanosis, clubbing, or pedal edema. NEUROLOGICAL: Gross neurological examination did not reveal any focal deficits. SKIN: No rashes. Assessment and plan -Left tibial plateau fracture conservative measures with the brace physical therapy possible discharge on Saturday -Asthma without any acute exacerbation - hyponatremia - hypertension Gastroesophageal reflux disease -Depression DVT prophylaxis: Lovenox Past Medical History Past Medical History: Asthma, GERD/Reflux, Hyperlipidemia, Hypertension Additional Past Medical History / Comment(s): ABDOMINAL PAIN History of Any Multi-Drug Resistant Organisms: MRSA Date of last positivie culture/infection: 2012 MDRO Source:: FACE Additional Past Surgical History / Comment(s): EGD, COLONOSCOPY, BREAST BX BENIGN Past Anesthesia/Blood Transfusion Reactions: No Reported Reaction Past Psychological History: Anxiety, Depression Smoking Status: Never smoker Past Alcohol Use History: None Reported Past Drug Use History: None Reported Medications and Allergies Home Medications Medication Instructions Recorded Confirmed Type Albuterol Inhaler [Ventolin Hfa 2 puff INHALATION RT-Q6H PRN 07/09/14 02/08/22 History Inhaler] Ergocalciferol [Vitamin D2 50,000 unit PO WE 07/09/14 02/08/22 History (DRISDOL)] Sertraline HCl [Zoloft] 50 mg PO DAILY 07/09/14 02/08/22 History Clindamycin Topical Soln 1 applic TOPICAL DAILY PRN 02/08/22 02/08/22 History [Cleocin-T Topical Soln] Clobetasol Propionate [Temovate 1 applic TOPICAL BID 02/08/22 02/08/22 History 0.05% Oint] Fluconazole 200 mg PO Q72H PRN 02/08/22 02/08/22 History Lansoprazole 15 mg PO HS 02/08/22 02/08/22 History Levocetirizine Dihydrochloride 5 mg PO DAILY 02/08/22 02/08/22 History Minocycline HCl [Minocin] 100 mg PO BID 02/08/22 02/08/22 History Mometasone Furoate [Asmanex 220 1 puff INHALATION RT-BID 02/08/22 02/08/22 History MCG] Mupirocin 2% Oint [Bactroban 2% 1 applic TOPICAL BID 02/08/22 02/08/22 History Oint] Super Snooze Herbal Supplement 1 dose PO HS PRN 02/08/22 02/08/22 History Triamcinolone 0.1% Cream [Kenalog 1 applicatio TOPICAL BID 02/08/22 02/08/22 History 0.1% Cream] Simvastatin [Zocor] 40 mg PO DAILY 02/09/22 02/09/22 History Allergies Allergy/AdvReac Type Severity Reaction Status Date / Time Penicillins Allergy Unknown Verified 02/08/22 22:33 Childhood Sulfa (Sulfonamide Allergy Rash/Hives Verified 02/08/22 22:33 Antibiotics) Physical Exam Vitals: Vital Signs Temp Pulse Pulse Resp BP BP Pulse Ox 02/09/22 07:45 98.1 F 63 16 122/70 100 02/09/22 06:46 74 15 129/73 100 02/08/22 18:40 97.7 F 83 18 149/91 99 Intake and Output 02/08/22 02/09/22 02/09/22 22:59 06:59 14:59 Other: Weight 92.079 kg 92.079 kg Thrombosis Risk Factor Assmnt - Choose All That Apply Any of the Below Risk Factors Present?: Yes Each Factor Represents 1 point: Obesity (BMI >25) Other Risk Factors: Yes Each Risk Factor Represents 2 Points: Age 61-74 years Other congenital or acquired thrombophilia - If yes, enter type in comment: No Thrombosis Risk Factor Assessment Total Risk Factor Score: 3 Thrombosis Risk Factor Assessment Level: Moderate Risk
[2022-02-09] MEDS ORDERED: CALCIUM CARBONATE 500 MG CHEWABLE PO PRN (14:22)
[2022-02-09] MEDS: MINOCYCLINE 50 MG CAP PO SCH (20:59)
[2022-02-09] MEDS: PANTOPRAZOLE 40 MG TABLET PO SCH (20:59)
[2022-02-09] MEDS ORDERED: ACETAMINOPHEN TAB 325 MG TAB PO PRN (21:44)
[2022-02-10] MEDS: MORPHINE SULFATE 4 MG/ML SYRINGE IV PRN ×2 (05:52→09:49)
--- NOTE | 2022-02-10 09:33 | P.PN ---
Subjective Progress Note Date: 02/10/22 Principal diagnosis: Left tibial plateau fracture This is a 67 year-old female post who we have been following for a left tibial plateau fracture. The patient was evaluated at the bedside today with Dr. Jones. The patient denies nausea, vomiting, abdominal pain, shortness of breath, and chest pain this morning. She states her pain is controlled at this time. The hinged knee brace was delivered yesterday and the patient states the brace is comfortable. Objective - Vital Signs Vital signs: Vital Signs Temp 98.4 F 02/10/22 07:00 Pulse 61 02/10/22 07:00 Resp 18 02/10/22 07:00 BP 127/67 02/10/22 07:00 Pulse Ox 97 02/10/22 07:00 FiO2 Intake & Output 02/09/22 02/10/22 02/10/22 18:59 06:59 18:59 Intake Total 240 Balance 240 Weight 92.079 kg Intake: Oral 240 Other: # Voids 1 3 # Bowel Movements 1 - Exam The patient is a 67 y/o female who is no acute distress. She is alert and oriented x3. Hinged knee brace on. Exam of the left knee reveals a mild to moderate effusion. No open wounds present. Pain to palpation to the lateral aspect of the knee. Limited ROM of the knee due to pain and guarding. Calf is soft and nontender. Good foot and ankle motion present. Good pedal pulse. Neurological status is intact. Assessment and Plan (1) Fracture of lateral condyle of left tibia Current Visit: Yes Status: Acute Code(s): S82.122A - DISP FX OF LATERAL CONDYLE OF LEFT TIBIA, INIT FOR CLOS FX SNOMED Code(s): 180803885 (2) Fall Current Visit: Yes Status: Acute Code(s): W19.XXXA - UNSPECIFIED FALL, INITIAL ENCOUNTER SNOMED Code(s): 7105517 Plan: The clinical, x-ray and CT findings were discussed with the patient. The case was discussed at length with Dr. Jones. No surgical intervention is planned. Continue in hinged knee brace. She will be nonweightbearing with a walker and the brace for 6 weeks. She may continue range of motion of the knee as tolerated with the brace on. The patient may discharge to skilled rehab per PT's recommendations when authorized by her insurance and a bed is available. We will sign off at this time.
[2022-02-10] MEDS: MINOCYCLINE 50 MG CAP PO SCH ×2 (09:39→20:08)
[2022-02-10] MEDS: LORATADINE 10 MG TAB PO SCH (09:40)
[2022-02-10] MEDS: ATORVASTATIN 20 MG TAB PO SCH (09:40)
[2022-02-10] MEDS: TRIAMCINOLONE 0.1% CREAM 80 GM TUBE TOPICAL SCH ×2 (09:40→20:07)
[2022-02-10] MEDS: SERTRALINE 50 MG TAB PO SCH (09:40)
[2022-02-10] MEDS: ENOXAPARIN 40 MG/0.4 ML SYRINGE SQ SCH (09:40)
[2022-02-10 09:55] LABS: HGB 11.2 g/dL (12.0-15.0); MCH 27.8 pg (27.0-32.0); MCV 86.8 fL (80.0-97.0); Mean Platelet Volume 9.8 fL (9.5-12.2); NRBC Per 100 WBC 0 /100 WBCS (0.0-0.0); Platelet Count 220 X 10*3/uL (140-440); RBC 4.03 X 10*6/uL (4.10-5.20); RDW 14.4 % (11.5-14.5); WBC 5.77 X 10*3/uL (4.50-10.00)
[2022-02-10 10:47] LABS: Anion Gap 10.3 mmol/L (10.00-18.00); BUN/Creat Ratio 13.5 Ratio (12.00-20.00); Blood Urea Nitrogen 10.8 mg/dL (9.0-27.0); Calcium 8.9 mg/dL (8.7-10.3); Carbon Dioxide 25.7 mmol/L (20.0-27.5); Non-African American GFR(CKD) 76.8 (60.0-200.0); Potassium 4.6 mmol/L (3.5-5.5)
[2022-02-10] MEDS: FLUTICASONE 110 MCG INHALER INHALATION SCH ×2 (11:39→20:49)
[2022-02-10] MEDS ORDERED: traMADol 50 MG TAB PO PRN (12:01)
--- NOTE | 2022-02-10 12:17 | P.DS ---
Providers Date of admission: 02/08/22 22:19 Attending physician: Deepti Alcantara Consults: 02/08/22 21:48 Consult Physician Urgent Consulting Provider: Marissa Jones Reason/Comments: Tibial plateau fracture Do you want consulting provider notified?: Yes [facility] Course: Final Diagnosis -Left tibial plateau fracture conservative measures with the brace -Asthma without any acute exacerbation -hypertension -Hyperlipidemia -Gastroesophageal reflux disease -Depression -Obesity DVT prophylaxis: Lovenox GI prophylaxis: PPI Full Code Discharge Disposition Patient is stable for discharge to subacute rehab pending insurance authorization. Continue on oral pain medication as needed. Recommend to follow up with primary care on discharge and also to follow up with Dr. Jones in 1 week on discharge. Hospital Course 67-year-old female came in with comments of right knee pain patient had a mechanical fall, found to have a left tibial plateau fracture. Patient was evaluated by orthopedic surgery and patient is nonweightbearing and follow with orthopedic surgery as an outpatient but patient was evaluated by physical therapy and occupational therapy recommended subacute rehabilitation. Currently needs prior authorization, pending discharged today or saturday however medically patinet is cleared. She reports weaning off of zyrtec outpatient and is currently on loratidine for allergy symptoms. Patient pain is fairly well controlled. Continue on oral pain medications with PPI and also discharged with bowel regimen. Continue with lovenox daily for VTE prophylaxis until patient is ambulatory. Remains afebrile, stable blood pressure 127/67, 97% room air. Heart rate 61 normal sinus rhythm. 02/10/2022 Patient is evaluated today resting in bed. She is pending DC to rehab if insurance authorization is obtained today. No acute events overnight. She denies chest pain, denies shortness of breath. Denies nausea vomiting or diarrhea. She is tolerating diet. Reports controlled pain to tib/fib fracture. No numbness or tingling reported to left lower leg. She has +2 pulse. No edema. Lungs are clear, S1 S2 auscultated, abdomen is soft and nontender. Alert x 3, focal neurological exam is negative. She is afebrile, hemodynamically stable. Resumed on all appopriate home medications with above mentioned recommendations. Thank you for allowing us to participate in the care of this patient. Please see medication reconciliation for a list of current medication. The impression and plan of care has been dictated by Sonia Noyola Nurse Practitioner as directed. Dr. Srinivas MD I have performed a history and physical examination and medical decision making of this patient, discussed the same with the dictator, and agree with the dic tators assessment and plan as written, documented as a scribe. Based on total visit time, I have performed more than 50% of this visit. Patient Condition at Discharge: Good Plan - Discharge Summary Discharge Rx Participant: No New Discharge Prescriptions: New Melatonin 3 mg PO HS tab HYDROcodone/APAP 5-325MG [[place] 5-325] 1 each PO Q4HR PRN #6 tab PRN Reason: Moderate Pain (Scale 4 To 6) Calcium Carbonate [Tums] 500 mg PO TID PRN tab PRN Reason: Heartburn Enoxaparin [Lovenox] 40 mg SQ DAILY each traMADol HCl [Ultram] 50 mg PO QID PRN #8 tab PRN Reason: Pain Continue Sertraline HCl [Zoloft] 50 mg PO DAILY Ergocalciferol [Vitamin D2 (DRISDOL)] 50,000 unit PO WE Albuterol Inhaler [Ventolin Hfa Inhaler] 2 puff INHALATION RT-Q6H PRN PRN Reason: Shortness Of Breath Minocycline HCl [Minocin] 100 mg PO BID Fluconazole 200 mg PO Q72H PRN PRN Reason: YEAST INFECTION Clindamycin Topical Soln [Cleocin-T Topical Soln] 1 applic TOPICAL DAILY PRN PRN Reason: Acne Mometasone Furoate [Asmanex 220 MCG] 1 puff INHALATION RT-BID Triamcinolone 0.1% Cream [Kenalog 0.1% Cream] 1 applicatio TOPICAL BID Mupirocin 2% Oint [Bactroban 2% Oint] 1 applic TOPICAL BID Levocetirizine Dihydrochloride 5 mg PO DAILY Lansoprazole 15 mg PO HS Clobetasol Propionate [Temovate 0.05% Oint] 1 applic TOPICAL BID Simvastatin [Zocor] 40 mg PO DAILY Discontinued Super Snooze Herbal Supplement 1 dose PO HS PRN PRN Reason: SLEEP Discharge Medication List Albuterol Inhaler [Ventolin Hfa Inhaler] 2 puff INHALATION RT-Q6H PRN 07/09/14 [History] Ergocalciferol [Vitamin D2 (DRISDOL)] 50,000 unit PO WE 07/09/14 [History] Sertraline HCl [Zoloft] 50 mg PO DAILY 07/09/14 [History] Clindamycin Topical Soln [Cleocin-T Topical Soln] 1 applic TOPICAL DAILY PRN 02/08/22 [History] Clobetasol Propionate [Temovate 0.05% Oint] 1 applic TOPICAL BID 02/08/22 [History] Fluconazole 200 mg PO Q72H PRN 02/08/22 [History] Lansoprazole 15 mg PO HS 02/08/22 [History] Levocetirizine Dihydrochloride 5 mg PO DAILY 02/08/22 [History] Minocycline HCl [Minocin] 100 mg PO BID 02/08/22 [History] Mometasone Furoate [Asmanex 220 MCG] 1 puff INHALATION RT-BID 02/08/22 [History] Mupirocin 2% Oint [Bactroban 2% Oint] 1 applic TOPICAL BID 02/08/22 [History] Triamcinolone 0.1% Cream [Kenalog 0.1% Cream] 1 applicatio TOPICAL BID 02/08/22 [History] Simvastatin [Zocor] 40 mg PO DAILY 02/09/22 [History] Calcium Carbonate [Tums] 500 mg PO TID PRN tab 02/10/22 [Rx] Enoxaparin [Lovenox] 40 mg SQ DAILY each 02/10/22 [Rx] HYDROcodone/APAP 5-325MG [[place] 5-325] 1 each PO Q4HR PRN #6 tab 02/10/22 [Rx] Melatonin 3 mg PO HS tab 02/10/22 [Rx] traMADol HCl [Ultram] 50 mg PO QID PRN #8 tab 02/10/22 [Rx] Follow up Appointment(s)/Referral(s): Marissa Jones DO [Doctor of Osteopathic Medicine] - 1 Week Doc Sevilla DO [Primary Care Provider] - 3 Days Activity/Diet/Wound Care/Special Instructions: Non weightbearing to the left leg with knee brace on. May remove brace for bathing and skin checks daily. Follow up with Dr. Jones in 1 week. Continue on alternating norco and tramadol for pain management Continue on lansoprazole Bowel regimen Discharge Disposition: TRANSFER TO SNF/ECF
[2022-02-10] MEDS: HYDROcodone/APAP 5-325MG 1 EACH TAB PO PRN ×2 (13:15→21:37)
[2022-02-10] MEDS: FLUTICASONE 50MCG/SPRAY NASAL 16GM EA NOSTRIL SCH (15:47)
[2022-02-10] MEDS: PANTOPRAZOLE 40 MG TABLET PO SCH (20:08)
[2022-02-10] MEDS: MELATONIN 3 MG TABLET PO SCH (20:08)
[2022-02-11] MEDS: HYDROcodone/APAP 5-325MG 1 EACH TAB PO PRN ×3 (07:45→19:37)
[2022-02-11] MEDS: ENOXAPARIN 40 MG/0.4 ML SYRINGE SQ SCH (07:46)
[2022-02-11] MEDS: LORATADINE 10 MG TAB PO SCH (07:46)
[2022-02-11] MEDS: MINOCYCLINE 50 MG CAP PO SCH ×2 (07:46→20:25)
[2022-02-11] MEDS: ATORVASTATIN 20 MG TAB PO SCH (07:46)
[2022-02-11] MEDS: SERTRALINE 50 MG TAB PO SCH (07:46)
[2022-02-11] MEDS: FLUTICASONE 50MCG/SPRAY NASAL 16GM EA NOSTRIL SCH (07:47)
[2022-02-11] MEDS: FLUTICASONE 110 MCG INHALER INHALATION SCH ×2 (08:10→19:58)
--- NOTE | 2022-02-11 11:43 | P.PN ---
Subjective Progress Note Date: 02/11/22 Patient is evaluated today resting in bed. Pending discharge to subacute rehab for acute tib/fib fracture on the left. Continues with brace per orthopedics. Continues to report pain 2/10 managed with oral pain medication. No acute events overnight. Remains afebrile, heart rate 62, blood pressure 164/91, 100% room air. Review of Systems Constitutional: Denied any fatigue denied any fever. Cardio vascular: denied any chest pain, palpitations Gastrointestinal: denied any nausea, vomiting, diarrhea Pulmonary: Denied any shortness of breath cough Neurologic denied any new focal deficits All inpatient medications were reviewed and appropriate changes in these medications as dictated in the interval history and assessment and plan. PHYSICAL EXAMINATION: GENERAL: The patient is alert and oriented x3, not in any acute distress. Well developed, well nourished. HEENT: Pupils are round and equally reacting to light. EOMI. No scleral icterus. No conjunctival pallor. Normocephalic, atraumatic. No pharyngeal erythema. No thyromegaly. CARDIOVASCULAR: S1 and S2 present. No murmurs, rubs, or gallops. PULMONARY: Chest is clear to auscultation, no wheezing or crackles. ABDOMEN: Soft, nontender, nondistended, normoactive bowel sounds. No palpable organomegaly. MUSCULOSKELETAL: No joint swelling or deformity. EXTREMITIES: No cyanosis, clubbing, or pedal edema. Left lower extremity brace in place NEUROLOGICAL: Gross neurological examination did not reveal any focal deficits. SKIN: No rashes. Assessment and plan -Left tibial plateau fracture conservative measures with the brace pending D/C to subacute rehab needs insurance auth -Asthma without any acute exacerbation -hypertension started on lisinopril -Hyperlipidemia -Gastroesophageal reflux disease -Depression -Obesity DVT prophylaxis: Lovenox GI prophylaxis: PPI Full Code The impression and plan of care has been dictated by Sonia Noyola Nurse Practitioner as directed. Dr. Srinivas MD I have performed a history and physical examination and medical decision making of this patient, discussed the same with the dictator, and agree with the dictators assessment and plan as written, documented as a scribe. Based on total visit time, I have performed more than 50% of this visit. Objective - Vital Signs Vital signs: Vital Signs Temp 98.2 F 02/11/22 07:00 Pulse 62 02/11/22 08:00 Resp 18 02/11/22 08:00 BP 164/91 02/11/22 07:00 Pulse Ox 100 02/11/22 07:00 FiO2 Intake & Output 02/10/22 02/11/22 02/11/22 18:59 06:59 18:59 Intake Total 120 Output Total 1000 Balance -880 Intake: Oral 120 Output: Urine 1000 Other: # Voids 2 2 - Labs CBC & Chem 7: 02/10/22 05:56 02/10/22 05:56 Assessment and Plan Time with Patient: Less than 30
[2022-02-11] MEDS: lisinopriL 5 MG TAB PO SCH (13:31)
[2022-02-11] MEDS: TRIAMCINOLONE 0.1% CREAM 80 GM TUBE TOPICAL SCH ×2 (13:37→20:26)
[2022-02-11] MEDS: MELATONIN 3 MG TABLET PO SCH (20:25)
[2022-02-11] MEDS: PANTOPRAZOLE 40 MG TABLET PO SCH (20:25)
[2022-02-11] MEDS ORDERED: TEMAZEPAM 15 MG CAP PO PRN (22:20)
[2022-02-12] MEDS: FLUTICASONE 110 MCG INHALER INHALATION SCH (08:49)
[2022-02-12] MEDS: HYDROcodone/APAP 5-325MG 1 EACH TAB PO PRN ×2 (09:31→15:28)
[2022-02-12] MEDS: ENOXAPARIN 40 MG/0.4 ML SYRINGE SQ SCH (09:32)
[2022-02-12] MEDS: TRIAMCINOLONE 0.1% CREAM 80 GM TUBE TOPICAL SCH (09:33)
[2022-02-12] MEDS: MINOCYCLINE 50 MG CAP PO SCH (09:33)
[2022-02-12] MEDS: SERTRALINE 50 MG TAB PO SCH (09:33)
[2022-02-12] MEDS: lisinopriL 5 MG TAB PO SCH (09:33)
[2022-02-12] MEDS: ATORVASTATIN 20 MG TAB PO SCH (09:33)
[2022-02-12] MEDS: LORATADINE 10 MG TAB PO SCH (09:33)
[2022-02-12] MEDS: FLUTICASONE 50MCG/SPRAY NASAL 16GM EA NOSTRIL SCH (09:34)
[2022-02-12 10:43] LABS: Basophils # (A) 0.03 X 10*3/uL (0.00-0.10); Basophils % (A) 0.5 %; Eosinophils # (A) 0.17 X 10*3/uL (0.04-0.35); Eosinophils % (A) 3.1 %; HCT 33.6 % (37.2-46.3); HGB 10.9 g/dL (12.0-15.0); Immature Grans, Automated 0.2 %; Lymphocytes # (A) 1.61 X 10*3/uL (0.90-5.00); Lymphocytes % (A) 29.1 %; MCH 28.1 pg (27.0-32.0); MCHC 32.4 g/dL (32.0-37.0); MCV 86.6 fL (80.0-97.0); Mean Platelet Volume 9.7 fL (9.5-12.2); Monocytes # (A) 0.64 X 10*3/uL (0.20-1.00); Monocytes % (A) 11.6 %; NRBC Per 100 WBC 0 /100 WBCS (0.0-0.0); Neutrophils # (A) 3.08 X 10*3/uL (1.80-7.70); Neutrophils % (A) 55.5 %; Platelet Count 220 X 10*3/uL (140-440); RBC 3.88 X 10*6/uL (4.10-5.20); WBC 5.54 X 10*3/uL (4.50-10.00)
--- NOTE | 2022-02-12 13:36 | P.PN ---
Subjective Progress Note Date: 02/12/22 Patient seen and examined. States pain in the left leg has improved. Denies any shortness of breath. Denies any nausea, vomiting or abdominal pain. Vital signs stable REVIEW OF SYSTEMS: CONSTITUTIONAL: No fever, no malaise,. CARDIOVASCULAR: No chest pain, no palpitations, no syncope. PULMONARY: No shortness of breath, no cough, GASTROINTESTINAL: No diarrhea, no nausea, no vomiting, no abdominal pain. NEUROLOGICAL: No headaches, no weakness, PHYSICAL EXAMINATION: GENERAL: The patient is alert and oriented x3, not in any acute distress. Well developed, well nourished. HEENT: Pupils are round and equally reacting to light. EOMI. No scleral icterus. No conjunctival pallor. Normocephalic, atraumatic. No pharyngeal erythema. No thyromegaly. CARDIOVASCULAR: S1 and S2 present. No murmurs, rubs, or gallops. PULMONARY: Chest is clear to auscultation, no wheezing or crackles. ABDOMEN: Soft, nontender, nondistended, normoactive bowel sounds. No palpable organomegaly. MUSCULOSKELETAL: No joint swelling or deformity. EXTREMITIES: No cyanosis, clubbing, or pedal edema. Left thigh cast seen NEUROLOGICAL: Gross neurological examination did not reveal any focal deficits. SKIN: No rashes. Assessment and plan Left tibial plateau fracture conservative measures with the brace pending D/C to subacute rehab -Asthma without any acute exacerbation -hypertension started on lisinopril -Hyperlipidemia -Gastroesophageal reflux disease -Depression -Obesity DVT prophylaxis: Lovenox Plan;. Currently waiting on insurance authorization. Discharge med rec done. Objective - Vital Signs Vital signs: Vital Signs Temp 98.3 F 02/12/22 07:00 Pulse 68 02/12/22 07:00 Resp 17 02/12/22 07:00 BP 144/79 02/12/22 07:00 Pulse Ox 98 02/12/22 07:00 FiO2 Intake & Output 02/11/22 02/12/22 02/12/22 18:59 06:59 18:59 Intake Total 240 180 Output Total 800 Balance -560 180 Intake: Oral 240 180 Output: Urine 800 Other: Voiding Method Toilet Bedside Commode # Voids 1 2 2 - Labs CBC & Chem 7: 02/12/22 07:03 02/10/22 05:56 Labs: Abnormal Lab Results - Last 24 Hours (Table) 02/12/22 Range/Units 07:03 RBC 3.88 L (4.10-5.20) X 10*6/uL Hgb 10.9 L (12.0-15.0) g/dL Hct 33.6 L (37.2-46.3) %
--- NOTE | 2022-02-12 13:39 | P.DS ---
Providers Date of admission: 02/08/22 22:19 Expected date of discharge: 02/12/22 Attending physician: Deepti Alcantara Consults: 02/08/22 21:48 Consult Physician Urgent Consulting Provider: Marissa Jones Consult Reason/Comments: Tibial plateau fracture Do you want consulting provider notified?: Yes Primary care physician: [facility] Course: Discharge diagnoses; Left tibial plateau fracture conservative measures with the brace -Asthma without any acute exacerbation -hypertension -Hyperlipidemia -Gastroesophageal reflux disease -Depression -Obesity Discharge Disposition Patient is stable for discharge to subacute rehab pending insurance authorization. Continue on oral pain medication as needed. Recommend to follow up with primary care on discharge and also to follow up with Dr. Jones in 1 week on discharge. Hospital Course 67-year-old female came in with comments of right knee pain patient had a mechanical fall, found to have a left tibial plateau fracture. Patient was evaluated by orthopedic surgery and patient is nonweightbearing and follow with orthopedic surgery as an outpatient but patient was evaluated by physical therapy and occupational therapy recommended subacute rehabilitation. Currently needs prior authorization, pending discharged today or saturday however medically anandanet is cleared. She reports weaning off of zyrtec outpatient and is currently on loratidine for allergy symptoms. Patient pain is fairly well controlled. Continue on oral pain medications with PPI and also discharged with bowel regimen. Continue with lovenox daily for VTE prophylaxis until patient is ambulatory. PHYSICAL EXAMINATION: GENERAL: The patient is alert and oriented x3, not in any acute distress. Well developed, well nourished. HEENT: Pupils are round and equally reacting to light. EOMI. No scleral icterus. No conjunctival pallor. Normocephalic, atraumatic. No pharyngeal erythema. No thyromegaly. CARDIOVASCULAR: S1 and S2 present. No murmurs, rubs, or gallops. PULMONARY: Chest is clear to auscultation, no wheezing or crackles. ABDOMEN: Soft, nontender, nondistended, normoactive bowel sounds. No palpable organomegaly. MUSCULOSKELETAL: No joint swelling or deformity. EXTREMITIES: No cyanosis, clubbing, or pedal edema. Left lower extremity brace NEUROLOGICAL: Gross neurological examination did not reveal any focal deficits. SKIN: No rashes. Plan - Discharge Summary Discharge Rx Participant: No New Discharge Prescriptions: New Melatonin 3 mg PO HS tab HYDROcodone/APAP 5-325MG [Tell 5-325] 1 each PO Q4HR PRN #6 tab PRN Reason: Moderate Pain (Scale 4 To 6) Calcium Carbonate [Tums] 500 mg PO TID PRN tab PRN Reason: Heartburn Enoxaparin [Lovenox] 40 mg SQ DAILY each traMADol HCl [Ultram] 50 mg PO QID PRN #8 tab PRN Reason: Pain lisinopriL [Zestril] 5 mg PO DAILY #30 tab Continue Sertraline HCl [Zoloft] 50 mg PO DAILY Ergocalciferol [Vitamin D2 (DRISDOL)] 50,000 unit PO WE Albuterol Inhaler [Ventolin Hfa Inhaler] 2 puff INHALATION RT-Q6H PRN PRN Reason: Shortness Of Breath Minocycline HCl [Minocin] 100 mg PO BID Fluconazole 200 mg PO Q72H PRN PRN Reason: YEAST INFECTION Clindamycin Topical Soln [Cleocin-T Topical Soln] 1 applic TOPICAL DAILY PRN PRN Reason: Acne Mometasone Furoate [Asmanex 220 MCG] 1 puff INHALATION RT-BID Triamcinolone 0.1% Cream [Kenalog 0.1% Cream] 1 applicatio TOPICAL BID Mupirocin 2% Oint [Bactroban 2% Oint] 1 applic TOPICAL BID Levocetirizine Dihydrochloride 5 mg PO DAILY Lansoprazole 15 mg PO HS Clobetasol Propionate [Temovate 0.05% Oint] 1 applic TOPICAL BID Simvastatin [Zocor] 40 mg PO DAILY Discontinued Super Snooze Herbal Supplement 1 dose PO HS PRN PRN Reason: SLEEP Discharge Medication List Albuterol Inhaler [Ventolin Hfa Inhaler] 2 puff INHALATION RT-Q6H PRN 07/09/14 [History] Ergocalciferol [Vitamin D2 (DRISDOL)] 50,000 unit PO WE 07/09/14 [History] Sertraline HCl [Zoloft] 50 mg PO DAILY 07/09/14 [History] Clindamycin Topical Soln [Cleocin-T Topical Soln] 1 applic TOPICAL DAILY PRN 02/08/22 [History] Clobetasol Propionate [Temovate 0.05% Oint] 1 applic TOPICAL BID 02/08/22 [History] Fluconazole 200 mg PO Q72H PRN 02/08/22 [History] Lansoprazole 15 mg PO HS 02/08/22 [History] Levocetirizine Dihydrochloride 5 mg PO DAILY 02/08/22 [History] Minocycline HCl [Minocin] 100 mg PO BID 02/08/22 [History] Mometasone Furoate [Asmanex 220 MCG] 1 puff INHALATION RT-BID 02/08/22 [History] Mupirocin 2% Oint [Bactroban 2% Oint] 1 applic TOPICAL BID 02/08/22 [History] Triamcinolone 0.1% Cream [Kenalog 0.1% Cream] 1 applicatio TOPICAL BID 02/08/22 [History] Simvastatin [Zocor] 40 mg PO DAILY 02/09/22 [History] Calcium Carbonate [Tums] 500 mg PO TID PRN tab 02/10/22 [Rx] Enoxaparin [Lovenox] 40 mg SQ DAILY each 02/10/22 [Rx] HYDROcodone/APAP 5-325MG [Tell 5-325] 1 each PO Q4HR PRN #6 tab 02/10/22 [Rx] Melatonin 3 mg PO HS tab 02/10/22 [Rx] traMADol HCl [Ultram] 50 mg PO QID PRN #8 tab 02/10/22 [Rx] lisinopriL [Zestril] 5 mg PO DAILY #30 tab 02/12/22 [Rx] Follow up Appointment(s)/Referral(s): Marissa Jones DO [Doctor of Osteopathic Medicine] - 1 Week Doc Sevilla DO [Primary Care Provider] - 3 Days Activity/Diet/Wound Care/Special Instructions: Non weightbearing to the left leg with knee brace on. May remove brace for bathing and skin checks daily. Follow up with Dr. Jones in 1 week. Continue on alternating norco and tramadol for pain management Continue on lansoprazole Bowel regimen
[2022-02-12 14:54] VITALS: BP 136/94; PULSE 84; RESP 16; TEMP 97.7
== END 2022-02-12 16:10 | disposition home or self-care (01) ==
LOC: EC 16:28 → 6NMEDSUR 22:19
PROVIDERS: ADMIT Hospitalist; ATTEND Hospitalist
DX: S82.142A Displaced bicondylar fracture of left tibia, initial encounter for closed fracture (principal); E87.1 Hypo-osmolality and hyponatremia; I10 Essential (primary) hypertension; K21.9 Gastro-esophageal reflux disease without esophagitis; E78.5 Hyperlipidemia, unspecified; J45.909 Unspecified asthma, uncomplicated; F32.A Depression, unspecified; F41.9 Anxiety disorder, unspecified; E66.9 Obesity, unspecified; M71.22 Synovial cyst of popliteal space [Baker], left knee; Z79.899 Other long term (current) drug therapy; Z88.0 Allergy status to penicillin; Z68.33 Body mass index [BMI] 33.0-33.9, adult; Z88.2 Allergy status to sulfonamides; W01.0XXA Fall on same level from slipping, tripping and stumbling without subsequent striking against object, initial encounter; Y92.000 Kitchen of unspecified non-institutional (private) residence as the place of occurrence of the external cause
CPT/HCPCS: 96376 ×3; 96372 ×4; 96374; 99285; 97530 ×2; 97163; 97166; 80048; 85025; 85027; 73562; 73700; G0378 ×5; L1830; J2270 ×3; J1650 ×3

== ENCOUNTER → 2022-07-05 | Outpatient (CLI) | payer OTHER ==
--- NOTE | 2022-07-05 14:28 | P.PN ---
Subjective DATE: 07/05/2022 FOLLOW UP VISIT. Patient with obstructive sleep apnea hypopnea syndrome return to sleep center for follow-up visit. Information from previous visit have been reviewed. Patient is using PAP equipment every night for the whole night, getting PAP supplies in time. The patient does not have significant problems with the mask, PAP unit and humidification. [place] sleepiness scale is 2, which is normal. I checked information from PAP unit. PAP unit pressure 5-20, average 13.9 cm H2O. Usage is 95 % for more then 4 hours, average 9.1 hours per night. Leak is 7 l/m, which is in acceptable range. Apnea Hypopnea Index is 5.8, which is borderline, index includes 3.7 central events. MEDICATIONS:1. Duloxetine 2. Metoprolol 3. Simvastatin During physical exam: GENERAL: A pleasant patient without any distress. VITAL SIGNS: BP 161/89, HR 70, RR 12, weight 211.6, temperature 97.8, oxygen saturation at room air 100 % . HEENT: PERRLA, EOMI.low position of soft palate, Mallapati 4 . NECK: Supple. No JVD. LUNGS: Clear to percussion and to auscultation. Good air exchange. No wheezing or rhonchi. HEART: S1, S2 regular. ABDOMEN: Soft and nontender.[] EXTREMITIES: No clubbing or cyanosis. SALES ENGINEER ACCOUNT MANAGER: Awake, alert, and oriented x3. No focal deficit. Impressions: 1. Obstructive sleep apnea-hypopnea syndrome. Patient demonstrated great compliance with treatment, benefiting from treatment. 2. Mild obesity, body mass index 35.1, patient increased weight on 13 pounds comparing with previous visit. 3. Hypertension. 4. History of depression. 5. Hyperlipidemia. 6. Acid reflux. Plan: 1. Continue using PAP equipment every night for the whole night. 2. To change air filter at least 1-2 times per month. 3. PAP unit should stay lower then position of the head. 4. Advised patient to remove all remaining water from humidifier canister daily and make it dry after each usage. Refill canister with fresh distilled water before each usage. 5. Sleep hygiene with regular time in bed for at least 8 hours. 6. Precautions related to driving. No driving if feel any sleepiness. 7. I will maintain prescription for PAP supplies including mask, tube, filters. 8. Watching and losing weight. 9. Follow up visit in 6 months or earlier if patient has any problems. Thank you very much for allowing me to participate in the management of your patient. Emmanuel Dinero MD, PhD, FAASM. Diplomat of [employer], Sleep Medicine Board by [employer] Screen Printing Machine Operator of [facility]
== END ==
LOC: SLEEP 13:18
PROVIDERS: ATTEND Internal Medicine
DX: G47.33 Obstructive sleep apnea (adult) (pediatric) (principal); E66.9 Obesity, unspecified; E78.5 Hyperlipidemia, unspecified; F32.A Depression, unspecified; I10 Essential (primary) hypertension; K21.9 Gastro-esophageal reflux disease without esophagitis; Z68.35 Body mass index [BMI] 35.0-35.9, adult; Z99.89 Dependence on other enabling machines and devices; Z79.899 Other long term (current) drug therapy; Z88.0 Allergy status to penicillin; Z88.2 Allergy status to sulfonamides; Z87.891 Personal history of nicotine dependence
CPT/HCPCS: 99212

== ENCOUNTER → 2022-11-29 | Outpatient (CLI) | payer OTHER ==
--- NOTE | 2022-11-29 19:52 | BD ---
EXAMINATION TYPE: Axial Bone Density DATE OF EXAM: 11/29/2022 CLINICAL HISTORY: 67 years old Female. ICD-10 CODE: Z78.0 asymptomatic menopausal state Height: Weight: FRAX RISK QUESTIONS: Alcohol (3 or more units per day): no Family History (Parent hip fracture): no Glucocorticoids (More than 3mos): no (Ex: prednisone, prednisolone, methylprednisolone, dexamethasone, and hydrocortisone). History of Fracture in Adulthood: yes Secondary Osteoporosis: 1. Type 1 Diabetes: no 2. Hyperthyroidism: no 3. Menopause before 45: yes 4. Malnutrition: no 5. Chronic liver disease: no Rheumatoid Arthritis: no Current Tobacco Use: no RISK FACTORS HISTORY OF: Surgery to Spine/Hip(right/left)/Wrist (right/left): no Family History of Osteoporosis: no Active: yes Diet low in dairy products/other sources of calcium: no Postmenopausal woman: yes Lost more than 2 inches in height since high school: no MEDICATIONS: Additional History: EXAM MEASUREMENTS: Bone mineral densitometry was performed using the [employer]tv System. Bone mineral density as measured about the Lumbar spine is: ----- L1-L4(G/cm2): 1.119 T Score Values are as follows: ----- L1: -1.1 ----- L2: -1.7 ----- L3: 0.0 ----- L4: 0.4 ----- L1-L4: -0.5 Z Score Values are as follows: ----- L1: -0.5 ----- L2: -1.2 ----- L3: 0.6 ----- L4: 0.9 ----- L1-L4: 0.0 Bone mineral density has: decreased -1.5 % since study of: 01.23.2011 Bone mineral density about the R hip (g/cm2): 0.804 Bone mineral density about the L hip (g/cm2): 0.763 T Score values are as follows: -----R Neck: -2.1 -----L Neck: -2.6 -----R Total: -1.6 -----L Total: -1.9 Z Score values are as follows: -----R Neck: -1.3 -----L Neck: -1.7 -----R Total: -1.1 -----L Total: -1.4 Bone mineral density has: decreased -5.1 % since study of: 01.23.2011 FRAX%s: The graph provided illustrates a 21.0% chance for a major osteoporotic fx and a 4.8% chance f or the hips probability for fx in 10 years time. IMPRESSION: Osteoporosis (T Score less than -2.5). There is increased fracture risk and therapy is usually indicated based on age. Re-Screen 1-2 years. NOTE: T-SCORE=SD OF THE YOUNG ADULT MEAN.
--- NOTE | 2022-12-01 17:13 | MM ---
Reason for Exam: Screening (asymptomatic). Last mammogram was performed 1 year(s) and 3 month(s) ago. Patient History: Menarche at age 15. First Full-Term at age 18. Postmenopausal. Excisional Biopsy on the Left side. Maternal aunt had breast cancer. Maternal aunt had breast cancer. Risk Values: Estee 5 year model risk: 1.3%. NCI Lifetime model risk: 4.7%. Prior Study Comparison: 12/30/2018 Bilateral Screening Mammogram, [facility]. 06/02/2020 Bilateral Screening Mammogram, [facility]. 09/01/2021 Bilateral MG 3D screening mammo w/cad, [facility]. Tissue Density: There are scattered fibroglandular densities. Findings: Analyzed By CAD. Unchanged global asymmetry medial left breast. There is no suspicious group of microcalcifications or new suspicious mass in either breast. Overall Assessment: Benign, BI-RAD 2 Management: Screening Mammogram of both breasts in 1 year. . Patient should continue monthly self-breast exams. A clinical breast exam by your physician is recommended on an annual basis. This exam should not preclude additional follow-up of suspicious palpable abnormalities. Note on Estee scores and lifetime risk: 1. A Estee score greater than 3% is considered moderate risk. If this is the case, consider specialist referral to assess eligibility for a risk reducing agent. 2. If overall lifetime risk for the development of breast cancer is 20% or higher, the patient may qualify for future screening with alternating mammogram and breast MRI. Electronically signed and approved by: Jesica Yao M.D. Radiologist
== END | disposition home or self-care (01) ==
LOC: RADBDWWP 16:29
PROVIDERS: ATTEND Family Medicine
DX: Z12.31 Encounter for screening mammogram for malignant neoplasm of breast (principal); M85.89 Other specified disorders of bone density and structure, multiple sites; M81.0 Age-related osteoporosis without current pathological fracture; Z78.0 Asymptomatic menopausal state; Z80.3 Family history of malignant neoplasm of breast
CPT/HCPCS: 77063; 77067; 77080

== ENCOUNTER → 2023-07-04 | Outpatient (CLI) | payer OTHER ==
--- NOTE | 2023-07-04 15:09 | P.PN ---
Subjective DATE: 02/12/2024 FOLLOW UP VISIT. Patient with obstructive sleep apnea hypopnea syndrome return to sleep center for follow-up visit. Information from previous visit have been reviewed. Patient is using PAP equipment every night for the whole night, getting PAP supplies in time. The patient does not have significant problems with the mask, PAP unit and humidification. [place] sleepiness scale is 4, which is normal. I checked information from PAP unit. PAP unit pressure 5-20, average 19.5 cm H2O, during previous visit it was 13.9. Usage is 100% for more then 4 hours, average 6.6 hours per night. Leak is perfectly normal 1 l/m. Apnea Hypopnea Index is 0.9, which is normal. Door for air filter is broken. MEDICATIONS:1. Wellbutrin 150 mg twice a day 2. Pristiq 50 mg once a day 3. Metoprolol once a day 4. Atorvastatin once a day During physical exam: GENERAL: A pleasant patient without any distress. VITAL SIGNS: Please see below, weight 210 pounds, BMI 35.2. HEENT: PERRLA, EOMI.low position of soft palate, Mallapati 4 . NECK: Supple. No JVD. LUNGS: Clear to percussion and to auscultation. Good air exchange. No wheezing or rhonchi. HEART: S1, S2 regular. ABDOMEN: Soft and nontender.[] EXTREMITIES: No clubbing or cyanosis. CARPENTERS SUPERVISOR: Awake, alert, and oriented x3. No focal deficit. Impressions: 1. Obstructive sleep apnea-hypopnea syndrome. Patient demonstrated great compliance with treatment, benefiting from treatment. 2. Obesity, BMI 35.2. 3. Hypertension. 4. Hyperlipidemia. 5. History of depression. 6. Acid reflux. Plan: 1. Continue using PAP equipment every night for the whole night. 2. To replace cover for air filter. 3. PAP unit should stay lower then position of the head. 4. Advised patient to remove all remaining water from humidifier canister daily and make it dry after each usage. Refill canister with fresh distilled water before each usage. 5. Sleep hygiene with regular time in bed for at least 8 hours. 6. Precautions related to driving. No driving if feel any sleepiness. 7. I will maintain prescription for PAP supplies including mask, tube, filters. 8. Follow up visit in 6 months or earlier if patient has any problems. 9. Watching and losing weight. Thank you very much for allowing me to participate in the management of your patient. Emmanuel Dinero MD, PhD, FAASM. Diplomat of [place] [employer], Sleep Medicine Board by [place] [employer] Bulk Plant Operator of [facility] [place]
== END ==
LOC: 3 N SLEEP 14:09
PROVIDERS: ATTEND Internal Medicine
DX: G47.33 Obstructive sleep apnea (adult) (pediatric) (principal); E66.9 Obesity, unspecified; I10 Essential (primary) hypertension; E78.5 Hyperlipidemia, unspecified; K21.9 Gastro-esophageal reflux disease without esophagitis; Z99.89 Dependence on other enabling machines and devices; Z86.59 Personal history of other mental and behavioral disorders; Z79.899 Other long term (current) drug therapy; Z88.0 Allergy status to penicillin; Z88.2 Allergy status to sulfonamides; Z87.891 Personal history of nicotine dependence; Z68.35 Body mass index [BMI] 35.0-35.9, adult

== ENCOUNTER → 2024-02-06 | Outpatient (CLI) | payer MEDICARE, BC ==
[2024-02-06 15:08] VITALS: BP 163/88; PULSE 70; RESP 16; TEMP 98.1
--- NOTE | 2024-02-06 16:28 | P.PROGSL ---
Subjective DATE: 02/06/2024 FOLLOW UP VISIT. Patient with obstructive sleep apnea hypopnea syndrome return to sleep center for follow-up visit. Information from previous visit have been reviewed. Patient is using PAP equipment every night for the whole night, getting PAP supplies in time. CPAP unit is noisy, patient has to cover your ears during the night. [place] sleepiness scale is 4, which is normal. I checked information from PAP unit. PAP unit pressure 5-20, average 16.7 cm H2O. Usage is 100% for more then 4 hours, average 8.8 hours per night. Leak is 5 l/m, which is in acceptable range. Apnea Hypopnea Index is 7.7, which includes central apnea hypopnea index 6.2. MEDICATIONS have been reviewed, please see below. During physical exam: GENERAL: A pleasant patient without any distress. VITAL SIGNS: Please see below, weight is 206 lbs. HEENT: PERRLA, EOMI.low position of soft palate, Mallapati 4 . NECK: Supple. No JVD. LUNGS: Clear to percussion and to auscultation. Good air exchange. No wheezing or rhonchi. HEART: S1, S2 regular. ABDOMEN: Soft and nontender.[] EXTREMITIES: No clubbing or cyanosis. WHITEWATER RAFTING GUIDE: Awake, alert, and oriented x3. No focal deficit. Impressions: 1. Obstructive sleep apnea-hypopnea syndrome. Patient demonstrated great compliance with treatment, benefiting from treatment. Apnea hypopnea index increased comparing to the previous visit when it was 0.9. CPAP unit is noisy and old. 2. Obesity. 3., Patient lost 4 pounds comparing with the previous visit, BMI 34.2. 4. Hypertension. 5. Hyperlipidemia. 6. Acid reflux. 7. History of depression. Plan: 1. Continue using PAP equipment every night for the whole night. Prescription to replace AutoPAP unit. 2. Sleep hygiene with regular time in bed for at least 7.5-8 hours 3. PAP unit should stay lower then position of the head. 4. Advised patient to remove all remaining water from humidifier canister daily and make it dry after each usage. Refill canister with fresh distilled water before each usage. 5. Watching weight. 6. Precautions related to driving. No driving if feel any sleepiness. 7. I will maintain prescription for PAP supplies including mask, tube, filters. 8. Follow up visit in 1-3 months after patient will get new CPAP unit. Thank you very much for allowing me to participate in the management of your patient. Emmanuel Dinero MD, PhD, FAASM. Diplomat of [place] [employer], Sleep Medicine Board by [place] [employer] Dietary Tech of [facility] [place] Objective - Vital Signs Vital Signs: Vital Signs Temp 98.1 F 02/06/24 15:07 Pulse 70 02/06/24 15:07 Resp 16 02/06/24 15:07 BP 163/88 02/06/24 15:07 Pulse Ox 98 02/06/24 15:07 FiO2 Intake & Output 02/05/24 02/06/24 02/06/24 18:59 06:59 18:59 Weight 93.44 kg Home Medications: Home Medications Medication Instructions Recorded Confirmed Type Albuterol Inhaler [Ventolin Hfa 2 puff INHALATION RT-Q6H PRN 07/09/14 07/04/23 History Inhaler] Ergocalciferol [Vitamin D2 50,000 unit PO WE 07/09/14 02/08/22 History (DRISDOL)] Sertraline HCl [Zoloft] 50 mg PO DAILY 07/09/14 02/08/22 History Clindamycin Topical Soln 1 applic TOPICAL DAILY PRN 02/08/22 02/08/22 History [Cleocin-T Topical Soln] Clobetasol Propionate [Temovate 1 applic TOPICAL BID 02/08/22 02/08/22 History 0.05% Oint] Fluconazole 200 mg PO Q72H PRN 02/08/22 02/08/22 History Lansoprazole 15 mg PO HS 02/08/22 02/08/22 History Levocetirizine Dihydrochloride 5 mg PO DAILY 02/08/22 02/08/22 History Minocycline HCl [Minocin] 100 mg PO BID 02/08/22 02/08/22 History Mometasone Furoate [Asmanex 220 1 puff INHALATION RT-BID 02/08/22 07/04/23 History MCG] Mupirocin 2% Oint [Bactroban 2% 1 applic TOPICAL BID 02/08/22 07/04/23 History Oint] Triamcinolone 0.1% Cream [Kenalog 1 applicatio TOPICAL BID 02/08/22 07/04/23 History 0.1% Cream] Simvastatin [Zocor] 40 mg PO DAILY 02/09/22 02/09/22 History Calcium Carbonate [Tums] 500 mg PO TID PRN tab 02/10/22 Rx Enoxaparin [Lovenox] 40 mg SQ DAILY each 02/10/22 Rx HYDROcodone/APAP 5-325MG [[place] 1 each PO Q4HR PRN #6 tab 02/10/22 Rx 5-325] Melatonin 3 mg PO HS tab 02/10/22 07/04/23 Rx traMADol HCl [Ultram] 50 mg PO QID PRN #8 tab 02/10/22 Rx lisinopriL [Zestril] 5 mg PO DAILY #30 tab 02/12/22 Rx Atorvastatin [Lipitor] 10 mg PO HS 07/04/23 07/04/23 History Desvenlafaxine Succinate [Pristiq] 50 mg PO DAILY 07/04/23 07/04/23 History Ibandronate Sodium [Boniva] 150 mg PO DIRECTED 07/04/23 07/04/23 History Metoprolol Tartrate 25 mg PO DAILY 07/04/23 07/04/23 History buPROPion HCL [Wellbutrin SR] 150 mg PO Q12H 07/04/23 07/04/23 History
== END ==
LOC: 3 N SLEEP 13:56
PROVIDERS: ATTEND Internal Medicine
DX: G47.33 Obstructive sleep apnea (adult) (pediatric) (principal); E66.9 Obesity, unspecified; I10 Essential (primary) hypertension; E78.5 Hyperlipidemia, unspecified; K21.9 Gastro-esophageal reflux disease without esophagitis; F32.A Depression, unspecified; Z99.89 Dependence on other enabling machines and devices; Z68.34 Body mass index [BMI] 34.0-34.9, adult; Z88.0 Allergy status to penicillin; Z88.2 Allergy status to sulfonamides; Z87.891 Personal history of nicotine dependence; Z79.899 Other long term (current) drug therapy
CPT/HCPCS: 99212

== ENCOUNTER → 2024-04-08 | Outpatient (CLI) | payer BC, MEDICARE ==
--- NOTE | 2024-04-08 15:25 | MM ---
Reason for Exam: Screening (asymptomatic). Last mammogram was performed 1 year(s) and 4 month(s) ago. Patient History: Menarche at age 15. First Full-Term at age 18. Postmenopausal. Excisional Biopsy on the Left side. Maternal aunt had breast cancer. Maternal aunt had breast cancer. Risk Values: Estee 5 year model risk: 1.3%. NCI Lifetime model risk: 4.3%. Prior Study Comparison: 06/02/2020 Bilateral Screening Mammogram, [facility]. 09/01/2021 Bilateral MG 3D screening mammo w/cad, [facility]. 11/29/2022 Bilateral MG 3D screening mammo w/cad, [facility]. Tissue Density: The breasts are heterogeneously dense, which may obscure small masses. Findings: Analyzed By CAD. Benign-appearing right axillary lymph nodes are now seen. There is no suspicious new group of microcalcifications or new suspicious mass in either breast. Overall Assessment: Negative, BI-RAD 1 Management: Screening Mammogram of both breasts in 1 year. . Patient should continue monthly self-breast exams. A clinical breast exam by your physician is recommended on an annual basis. This exam should not preclude additional follow-up of suspicious palpable abnormalities. Note on Estee scores and lifetime risk: 1. A Estee score greater than 3% is considered moderate risk. If this is the case, consider specialist referral to assess eligibility for a risk reducing agent. 2. If overall lifetime risk for the development of breast cancer is 20% or higher, the patient may qualify for future screening with alternating mammogram and breast MRI. [facility], , 04/08/2024 3:22 PM. Electronically signed and approved by: Lele Ruiz M.D.
== END | disposition home or self-care (01) ==
LOC: RADMAMWWP 12:48
PROVIDERS: ATTEND Family Medicine
DX: Z12.31 Encounter for screening mammogram for malignant neoplasm of breast (principal); Z78.0 Asymptomatic menopausal state; Z80.3 Family history of malignant neoplasm of breast; R92.333 Mammographic heterogeneous density, bilateral breasts
CPT/HCPCS: 77063; 77067

== ENCOUNTER → 2024-05-28 | Outpatient (CLI) | payer MEDICARE ==
[2024-05-28 15:00] VITALS: BP 144/91; PULSE 96; RESP 18; TEMP 97.5
--- NOTE | 2024-05-28 15:51 | P.PROGSL ---
Subjective DATE: 05/28/2024 FOLLOW UP VISIT. Patient with obstructive sleep apnea hypopnea syndrome return to sleep center for follow-up visit. Information from previous visit have been reviewed. This is first visit after patient received new AutoPap unit. Patient is using PAP equipment every night for the whole night, getting PAP supplies in time. The patient does not have significant problems with the mask, PAP unit and humidification. [place] sleepiness scale is 2, which is perfect. I checked information from PAP unit. PAP unit pressure 5-20, average 19.1 cm H2O. Usage is 100% for more then 4 hours, average 8.5 hours per night. Leak is 2.0 l/m, which is in acceptable range. Apnea Hypopnea Index is 3.8, which is normal. MEDICATIONS have been reviewed, please see below. During physical exam: GENERAL: A pleasant patient without any distress. VITAL SIGNS: Please see below, weight is 206.4 lbs. HEENT: PERRLA, EOMI.low position of soft palate, Mallapati 4 . NECK: Supple. No JVD. LUNGS: Clear to percussion and to auscultation. Good air exchange. No wheezing or rhonchi. HEART: S1, S2 regular. ABDOMEN: Soft and nontender.[] EXTREMITIES: No clubbing or cyanosis. INSOLE ROUNDER: Awake, alert, and oriented x3. No focal deficit. Impressions: 1. Obstructive sleep apnea-hypopnea syndrome. Patient demonstrated great compliance with treatment, benefiting from treatment. 2. Obesity, BMI 34.2. 3. Hypertension. 4. Acid reflux. 5. History of depression. 6. Hyperlipidemia. Plan: 1. Continue using PAP equipment every night for the whole night. 2. Sleep hygiene with regular time in bed for at least 7.5-8 hours 3. PAP unit should stay lower then position of the head. 4. Advised patient to remove all remaining water from humidifier canister daily and make it dry after each usage. Refill canister with fresh distilled water before each usage. 5. Watching and losing weight. 6. Precautions related to driving. No driving if feel any sleepiness. 7. I will maintain prescription for PAP supplies including mask, tube, filters. 8. Follow up visit in 8 months or earlier if patient has any problems. Thank you very much for allowing me to participate in the management of your patient. Emmanuel Dinero MD, PhD, FAASM. Diplomat of [place] [employer], Sleep Medicine Board by [place] [employer] Landscape Designer of [facility] [place] Objective - Vital Signs Vital Signs: Vital Signs Temp 97.5 F L 05/28/24 14:59 Pulse 96 05/28/24 14:59 Resp 18 05/28/24 14:59 BP 144/91 05/28/24 14:59 Pulse Ox 99 05/28/24 14:59 FiO2 Intake & Output 05/27/24 05/28/24 05/28/24 18:59 06:59 18:59 Weight 93.553 kg Home Medications: Home Medications Medication Instructions Recorded Confirmed Type Albuterol Inhaler [Ventolin Hfa 2 puff INHALATION RT-Q6H PRN 07/09/14 07/04/23 History Inhaler] Ergocalciferol [Vitamin D2 50,000 unit PO WE 07/09/14 02/08/22 History (DRISDOL)] Sertraline HCl [Zoloft] 50 mg PO DAILY 07/09/14 02/08/22 History Clindamycin Topical Soln 1 applic TOPICAL DAILY PRN 02/08/22 02/08/22 History [Cleocin-T Topical Soln] Clobetasol Propionate [Temovate 1 applic TOPICAL BID 02/08/22 02/08/22 History 0.05% Oint] Fluconazole 200 mg PO Q72H PRN 02/08/22 02/08/22 History Lansoprazole 15 mg PO HS 02/08/22 02/08/22 History Levocetirizine Dihydrochloride 5 mg PO DAILY 02/08/22 02/08/22 History Minocycline HCl [Minocin] 100 mg PO BID 02/08/22 02/08/22 History Mometasone Furoate [Asmanex 220 1 puff INHALATION RT-BID 02/08/22 07/04/23 History MCG] Mupirocin 2% Oint [Bactroban 2% 1 applic TOPICAL BID 02/08/22 07/04/23 History Oint] Triamcinolone 0.1% Cream [Kenalog 1 applicatio TOPICAL BID 02/08/22 07/04/23 History 0.1% Cream] Simvastatin [Zocor] 40 mg PO DAILY 02/09/22 02/09/22 History Calcium Carbonate [Tums] 500 mg PO TID PRN tab 02/10/22 Rx Enoxaparin [Lovenox] 40 mg SQ DAILY each 02/10/22 Rx HYDROcodone/APAP 5-325MG [[place] 1 each PO Q4HR PRN #6 tab 02/10/22 Rx 5-325] Melatonin 3 mg PO HS tab 02/10/22 07/04/23 Rx traMADol HCl [Ultram] 50 mg PO QID PRN #8 tab 02/10/22 Rx lisinopriL [Zestril] 5 mg PO DAILY #30 tab 02/12/22 Rx Atorvastatin [Lipitor] 10 mg PO HS 07/04/23 07/04/23 History Desvenlafaxine Succinate [Pristiq] 50 mg PO DAILY 07/04/23 07/04/23 History Ibandronate Sodium [Boniva] 150 mg PO DIRECTED 07/04/23 07/04/23 History Metoprolol Tartrate 25 mg PO DAILY 07/04/23 07/04/23 History buPROPion HCL [Wellbutrin SR] 150 mg PO Q12H 07/04/23 07/04/23 History
== END ==
LOC: 3 N SLEEP 14:17
PROVIDERS: ATTEND Internal Medicine
DX: G47.33 Obstructive sleep apnea (adult) (pediatric) (principal); E66.9 Obesity, unspecified; I10 Essential (primary) hypertension; E78.5 Hyperlipidemia, unspecified; K21.9 Gastro-esophageal reflux disease without esophagitis; Z68.34 Body mass index [BMI] 34.0-34.9, adult; Z86.59 Personal history of other mental and behavioral disorders; Z87.891 Personal history of nicotine dependence; Z88.0 Allergy status to penicillin; Z88.2 Allergy status to sulfonamides
CPT/HCPCS: 99212